=== PATIENT | female | born 1990 | race Caucasian/White ===

== ENCOUNTER 2020-05-29 08:29 | Outpatient (REF) | payer OTHER, SELFPAY ==
--- NOTE | ~2020-05-29 | US_ITS ---
EXAMINATION: US RETROPERITONEAL LIMITED (RENAL ONLY) CLINICAL INFORMATION: Calculus of kidney. COMPARISON: None TECHNIQUE: Real-time imaging of the kidneys. FINDINGS: RIGHT KIDNEY: 10.5 x 4.1 x 5.4 cm (SAG x AP x TRV). The kidney is normal in size, contour, and echogenicity. Renal cortical thickness is normal. No calculi or focal parenchymal lesions. No hydronephrosis. LEFT KIDNEY: 10.4 x 5.0 x 5.4 cm (SAG x AP x TRV). The kidney is normal in size, contour, and echogenicity. Renal cortical thickness is normal. No calculi or focal parenchymal lesions. No hydronephrosis. US/US renal BI IMPRESSION: Unremarkable renal ultrasound.
[2020-05-29 09:37] LABS: MANUAL DIFF FLAG NO
[2020-05-29 09:45] LABS: Basophils Percent Auto 0.4 % (0-2); Eosinophils Absolute Auto 0.1 X10*3/uL (0.0-0.4); Eosinophils Percent Auto 1.8 % (0-4); Hematocrit 38.4 % (37-47); Hemoglobin 12.1 g/dl (12.0-16.0); Imm Gran Abs Auto 0.04 X10*3/uL (0.00-0.03); Imm Gran Pct Auto 0.7 % (0.0-0.4); Lymphocytes Absolute Auto 1.6 X10*3/uL (1.2-4.9); Mean Corpuscular HGB Conc 31.5 g/dl (31.0-35.0); Mean Corpuscular Hemoglobin 26.8 pg (27.0-33.0); Mean Platelet Volume 10.6 fL (9.4-12.3); Monocytes Absolute Auto 0.4 X10*3/uL (0.1-1.2); Monocytes Percent Auto 6.8 % (2-11); Neutrophils Absolute Auto 3.4 X10*3/uL (2.0-8.3); Neutrophils Percent Auto 61.3 % (45-73); Platelet Count 220 X10*3/uL (160-400); Red Blood Count 4.52 X10*6/uL (4.20-5.50); Red Cell Distribution Width 13.3 % (11.0-16.0); White Blood Count 5.6 X10*3/uL (4.8-10.8)
[2020-05-29 10:10] LABS: Alanine Aminotransferase 10 U/L (0-31); Albumin Level 4.4 g/dL (3.5-5.0); Alkaline Phosphatase 80 U/L (39-117); Anion Gap 14 (12-20); Aspartate Amino Transferase 14 U/L (5-31); Bilirubin Total 0.2 mg/dL (0.0-1.0); Blood Urea Nitrogen 7 mg/dL (9-16); Calcium 9.3 mg/dL (8.4-10.2); Carbon Dioxide 26 mmol/L (22-29); Chloride 104 mmol/L (96-108); Cholesterol 211 mg/dL; Estimated Glomerular Filt Rate > 60; Glucose Fasting 83 mg/dL (60-99); HDL Cholesterol 80 mg/dL; LDL Cholesterol Calculated 116 mg/dl; Potassium 4.3 mmol/L (3.3-5.1); Sodium 140 mmol/L (135-145); Total Protein 7.2 g/dL (6.5-8.0); Triglycerides 76 mg/dL
[2020-05-29 10:32] LABS: TSH reflex Free T4 2.76 uIU/mL (0.32-4.0)
[2020-06-03 14:56] LABS: Vitamin D 25-OH, D2 <4 ng/mL; Vitamin D 25-OH, D3 14 ng/mL; Vitamin D 25-OH, Total 14 ng/mL (30-100)
== END 2020-05-29 08:30 | disposition home or self-care (01) ==
LOC: HO.US 08:29
PROVIDERS: Visit Provider Internal Medicine
DX: N20.0 Calculus of kidney (principal); E66.3 Overweight; E55.9 Vitamin D deficiency, unspecified; E78.5 Hyperlipidemia, unspecified; D64.9 Anemia, unspecified
CPT/HCPCS: 36415; 76775; 80053; 80061; 82306; 84443; 85025

== ENCOUNTER 2021-10-07 18:09 | Emergency (ER) | payer OTHER, SELFPAY ==
--- NOTE | ~2021-10-07 | XR_ITS ---
EXAMINATION: XR CHEST CLINICAL INFORMATION: Chest pain COMPARISON: None TECHNIQUE: Frontal view of the chest was obtained. FINDINGS: No significant abnormality is noted involving the heart, lungs, mediastinum, bony thorax or soft tissues. XR/XR chest 1V IMPRESSION: Unremarkable examination.
[2021-10-07 18:27] VITALS: BP 163/88; PULSE 81; RESP 16; TEMP 36.8; O2SAT 99; BMI 27.4
--- NOTE | 2021-10-07 18:29 | ECG_ITS ---
Test Reason : chest tight Blood Pressure : / mmHG Vent. Rate : 070 BPM Atrial Rate : 070 BPM P-R Int : 156 ms QRS Dur : 074 ms QT Int : 358 ms P-R-T Axes : -21 040 029 degrees QTc Int : 386 ms Normal sinus rhythm Septal infarct , age undetermined Abnormal ECG No previous ECGs available Referred By: Generic ED Physician Electronically Signed By:FAMILIA RICH MD
[2021-10-07 18:42] LABS: MANUAL DIFF FLAG NO
[2021-10-07 18:46] LABS: Basophils Percent Auto 0.2 % (0-2); Eosinophils Absolute Auto 0.2 X10*3/uL (0.0-0.4); Hematocrit 35.9 % (37.0-47.0); Hemoglobin 11.6 g/dl (12.0-16.0); Imm Gran Abs Auto 0.02 X10*3/uL (0.00-0.03); Imm Gran Pct Auto 0.3 % (0.0-0.4); Lymphocytes Absolute Auto 1.9 X10*3/uL (1.2-4.9); Lymphocytes Percent Auto 30.5 % (20-40); Mean Corpuscular HGB Conc 32.3 g/dl (31.0-35.0); Mean Corpuscular Hemoglobin 26.9 pg (27.0-33.0); Mean Corpuscular Volume 83.1 fL (80.0-98.0); Mean Platelet Volume 9.5 fL (9.4-12.3); Monocytes Absolute Auto 0.4 X10*3/uL (0.1-1.2); Monocytes Percent Auto 5.6 % (2-11); Neutrophils Absolute Auto 3.8 x10*3/uL (2.0-8.3); Neutrophils Percent Auto 60.4 % (45-73); Platelet Count 256 X10*3/uL (160-400); Red Blood Count 4.32 X10*6/uL (4.20-5.50); Red Cell Distribution Width 14.6 % (11.0-16.0); White Blood Count 6.3 X10*3/uL (4.8-10.8)
[2021-10-07 19:05] LABS: Anion Gap 15 (12-20); Blood Urea Nitrogen 9 mg/dL (9-16); Carbon Dioxide 22 mmol/L (22-29); Chloride 105 mmol/L (96-108); Creatinine Clr Calc Pharmacy 103.7; Estimated Glomerular Filt Rate > 60; Glucose Random 104 mg/dL (60-115); Potassium 3.7 mmol/L (3.3-5.1); Sodium 138 mmol/L (135-145)
[2021-10-07 19:14] LABS: Troponin-I High Sensitivity < 3.5 ng/L (<3.5-17.0)
[2021-10-07 21:31] VITALS: BP 166/99; PULSE 71; RESP 17; O2SAT 100
--- NOTE | 2021-10-07 21:54 | ED_ITS ---
HPI - Chest Pain General Chief Complaint: Chest Pain Stated Complaint: chest pain Time Seen by Provider: 10/07/21 21:54 Source: patient Mode of arrival: ambulatory Limitations: no limitations History of Present Illness HPI narrative: Patient with strong family history of hypertension her sister who is 2 years older to her and parents have hypertension but patient never been diagnosed with hypertension comes here for 3 days of mid chest pain off and on been constant since yesterday feels sharp Related Data Previous Rx's Medication Instructions Recorded ibuprofen 600 mg tablet 600 mg PO Q6H PRN pain #30 tabs 10/07/21 Allergies Allergy/AdvReac Type Severity Reaction Status Date / Time No Known Allergies Allergy Verified 10/07/21 18:27 Review of Systems Review of Systems: Yes all other systems are reviewed and are negative FOR[facility]LY [facility] Past Medical History Medical History Encounter for physical examination Hypovitaminosis D Mild recurrent major depression Overweight Renal calculi Surgical History No pertinent past surgical history Family History Family History Mother Hypertension Father Pure hypercholesterolemia Hypertension Social History Social History Housing: Apartment Alcohol intake: never Patient Tobacco Use Status: Never used Tobacco e-Cigarette/Vaping Use: Never Used Second Hand Smoke Exposure: No Advance Directives: No Advance Directives Information Provided: No service: No Current occupational status: employed Current occupational exposures/hazards: No Physical Exam Vital Signs: Vital Signs: Last Vital Signs Temp 98.3 F 10/07/21 23:08 Pulse 71 10/07/21 23:39 Resp 19 10/07/21 23:39 BP 118/71 10/07/21 23:39 Pulse Ox 97 10/07/21 23:39 O2 Del Method 10/07/21 23:39 BMI result Body Mass Index 27.4 Appearance: Alert. Oriented X3. No acute distress. Eyes: No pallor or icterus ENT: Pharynx normal. Oral Mucosa moist Neck: Normal inspection. Neck supple. CVS: Normal heart rate and rhythm. Pulses normal. Respiratory: No respiratory distress. Equal air entry bilateral, no wheezing/rales/rhonchi tender left 2nd ICS Abdomen: Soft and nontender. Bowel sounds are present, no mass palpable, no CVA tenderness Skin: Skin warm and dry. Normal skin color. Normal skin turgor. Extremities: No lower extremity edema. No calf tenderness Neuro: Oriented X 3. No motor deficit. MDM - Chest Pain MDM Narrative Medical decision making narrative: 2340 Patient with 3 days of chest pain EKG normal 2 sets of troponin negative tender to touch left intercostal space patient has no history of hypertension but noticed to have blood pressure elevated to 166/99 nitropaste was applied blood pressure improved to 118/71 patient still having the pain without much improvement from nitro paste. Will discharge patient home advised to follow with PCP for further diagnosis of hypertension Differential Diagnosis Differential diagnosis: Likely atypical chest pain and costochondritis Medical Records Data Attestation: I reviewed the patient's medical records. Lab Data Attestation: I reviewed the patient's lab results. Result diagrams: 10/07/21 18:38 10/07/21 18:38 Labs: Lab Results 10/07/21 10/07/21 10/07/21 Range/Units 18:38 18:38 18:38 WBC 6.3 (4.8-10.8) X10*3/uL RBC 4.32 (4.20-5.50) X10*6/uL Hgb 11.6 L (12.0-16.0) g/dl Hct 35.9 L (37.0-47.0) % MCV 83.1 (80.0-98.0) fL MCH 26.9 L (27.0-33.0) pg MCHC 32.3 (31.0-35.0) g/dl RDW 14.6 (11.0-16.0) % Plt Count 256 (160-400) X10*3/uL MPV 9.5 (9.4-12.3) fL Immature Gran % (Auto) 0.3 (0.0-0.4) % Neut % (Auto) 60.4 (45-73) % Lymph % (Auto) 30.5 (20-40) % Valencia % (Auto) 5.6 (2-11) % Eos % (Auto) 3.0 (0-4) % Baso % (Auto) 0.2 (0-2) % Lymph # (Auto) 1.9 (1.2-4.9) X10*3/uL Valencia # (Auto) 0.4 (0.1-1.2) X10*3/uL Eos # (Auto) 0.2 (0.0-0.4) X10*3/uL Baso # (Auto) 0.0 (0.0-0.2) X10*3/uL Abs Immat Gran (auto) 0.02 (0.00-0.03) X10*3/uL Absolute Neuts (auto) 3.8 (2.0-8.3) x10*3/uL Absolute Nucleated RBC 0.000 (0.0-0.012) X10*3/uL Nucleated RBC % (auto) 0.0 (0.0-0.2) /100WBC D-Dimer High Sensitivty NG/ML Sodium 138 (135-145) mmol/L Potassium 3.7 (3.3-5.1) mmol/L Chloride 105 (96-108) mmol/L Carbon Dioxide 22 (22-29) mmol/L Anion Gap 15 (12-20) BUN 9 (9-16) mg/dL Creatinine 0.76 (0.5-1.4) mg/dL Estim Creat Clear Calc 103.7 Estimated GFR > 60 Random Glucose 104 (60-115) mg/dL Calcium 9.0 (8.4-10.2) mg/dL Troponin I High Sens < 3.5 (<3.5-17.0) ng/L 10/07/21 10/07/21 Range/Units 23:01 23:01 WBC (4.8-10.8) X10*3/uL RBC (4.20-5.50) X10*6/uL Hgb (12.0-16.0) g/dl Hct (37.0-47.0) % MCV (80.0-98.0) fL MCH (27.0-33.0) pg MCHC (31.0-35.0) g/dl RDW (11.0-16.0) % Plt Count (160-400) X10*3/uL MPV (9.4-12.3) fL Immature Gran % (Auto) (0.0-0.4) % Neut % (Auto) (45-73) % Lymph % (Auto) (20-40) % Valencia % (Auto) (2-11) % Eos % (Auto) (0-4) % Baso % (Auto) (0-2) % Lymph # (Auto) (1.2-4.9) X10*3/uL Valencia # (Auto) (0.1-1.2) X10*3/uL Eos # (Auto) (0.0-0.4) X10*3/uL Baso # (Auto) (0.0-0.2) X10*3/uL Abs Immat Gran (auto) (0.00-0.03) X10*3/uL Absolute Neuts (auto) (2.0-8.3) x10*3/uL Absolute Nucleated RBC (0.0-0.012) X10*3/uL Nucleated RBC % (auto) (0.0-0.2) /100WBC D-Dimer High Sensitivty < 150 NG/ML Sodium (135-145) mmol/L Potassium (3.3-5.1) mmol/L Chloride (96-108) mmol/L Carbon Dioxide (22-29) mmol/L Anion Gap (12-20) BUN (9-16) mg/dL Creatinine (0.5-1.4) mg/dL Estim Creat Clear Calc Estimated GFR Random Glucose (60-115) mg/dL Calcium (8.4-10.2) mg/dL Troponin I High Sens < 3.5 (<3.5-17.0) ng/L Discharge Plan Discharge Clinical Impression: Chest pain, Hypertension Patient Disposition: Home, Self-Care Instructions: Chest Pain (ED), Hypertension (ED) Additional Instructions: Your pain likely musculoskeletal pain Take pain medication as prescribed Your blood pressure was slightly elevated possibly have hypertension check blood pressure daily it should be less than 130/80 follow with PCP Prescriptions: New ibuprofen 600 mg tablet 600 mg PO Q6H PRN (Reason: pain) Qty: 30 0RF
[2021-10-07 23:08] VITALS: BP 125/86; PULSE 72; RESP 16; TEMP 36.8; O2SAT 98
[2021-10-07 23:25] LABS: D Dimer High Sensitivity < 150 NG/ML
[2021-10-07 23:27] LABS: Troponin-I High Sensitivity < 3.5 ng/L (<3.5-17.0)
[2021-10-07 23:39] VITALS: BP 118/71; PULSE 71; RESP 19; O2SAT 97
[2021-10-07] MEDS: Ketorolac Tromethamine 30 MG/ML VIAL IVPUSH (23:55)
== END 2021-10-08 00:08 | disposition home or self-care (01) ==
PROVIDERS: Emergency Provider Internal Medicine; PCP Internal Medicine
DX: R07.9 Chest pain, unspecified (principal); I10 Essential (primary) hypertension
CPT/HCPCS: 36415; 71045; 80048; 84484; 85025; 85379; 93005; 96374; 99284; 99285; J1885

== ENCOUNTER → 2021-12-26 08:23 | Outpatient (REF) | payer OTHER, SELFPAY ==
--- NOTE | 2021-12-26 08:27 | CA_ITS ---
Transthoracic Echocardiogram Patient (Last, First, Middle): Nori Payne, Gender: Female Date of : 1990 Age: 31 Procedure Date: 12/26/2021 Procedure Type: Transthoracic Echocardiogram Location: OP Height: 162.56 cm Weight: 72.58 kg BSA: 1.78 m2 Heart Rate: 70 bpm BP: 150 / 90 mmHg Molder Fitting: Referring MD: Ceasar Araya MD Symptoms: R07.9 - Chest pain, unspecified Study Quality: Fair ECG Rhythm: Sinus Conclusions: - Normal left ventricular size and systolic function. The visually estimated ejection fraction is between 55-60%. - There is mild septal asymmetric hypertrophy. - Normal right ventricular cavity size and systolic function. Findings Left Ventricle Normal left ventricular size and systolic function. The visually estimated ejection fraction is between 55-60%. There is no evidence of regional wall motion abnormalities. Diastolic function is normal for age. There is mild septal asymmetric hypertrophy. Right Ventricle Normal right ventricular cavity size and systolic function. Atria Both atria are normal in size. Aortic Valve Normal aortic valve structure and function. There is no aortic valve stenosis. There is no aortic valve regurgitation. Mitral Valve The mitral valve appears normal. There is no mitral valve regurgitation. There is no mitral valve stenosis. Pulmonic Valve Normal pulmonic valve structure and function. There is trace pulmonic valve regurgitation. Tricuspid Valve Normal tricuspid valve structure and function. There is no tricuspid valve regurgitation. Normal right atrial pressure. There is no evidence of pulmonary hypertension. Great Vessels All visible segments of the aorta are normal in size. The visualized portions of the pulmonary artery and branches are normal. Venous The inferior vena cava is normal in size and collapses greater than 50% with inspiration. Pericardium/Pleural There is no evidence of pericardial effusion. Prior Study Comparison No prior study available for comparison. Measurements 2D Linear Measurements IVSd: 0.95 0.6-0.9/0.6-1.0 cm LVIDd: 4.70 3.9-5.3/4.2-5.9 cm LVIDd Index: 2.64 2.4-3.2/2.2-3.1 cm/m2 LVIDs: 3.10 2.0-3.6 cm LVPWd: 0.78 0.7-1.1 cm Ao Root: 2.80 2.1-3.5 cm LA Diam: 3.40 2.7-3.8/3.0-4.0 cm LAIDs Index: 1.91 1.5-2.3 cm/m2 LV Mass: 167.99 67-162/88-224 g LV Mass Index: 94.38 43-95/49-115 g/m2 LVOT Diam: 2.00 3.0+(-)1.3 cm Mitral Valve MV Pk E: 0.87 MV PK A: 0.70 MV Decel Time: 203.00 E/A: 1.20 E'Lateral: 10.30 E'Medial: 11.40 E/E' Med: 7.60 E/E' Lat: 8.40 PHT: 59.00 MVA PHT: 3.73 Decel Bowie: 4.29 Aortic Valve AoV Pk Jerry: 1.28 AoV Mn Jerry: 0.86 AoV VTI: 0.26 AoV Pk Grad: 7.00 Aov Mn Grad: 4.00 GABRIELLE Cont.VTI: 2.61 LVOT LVOT Pk Jerry: 0.98 LVOT Mn Jerry: 0.65 LVOT VTI: 0.21 LVOT Pk Grad: 4.00 LVOT Mn Grad: 2.00 LVOT Diam: 2.00 LVOT Area: 3.14 Diastolic Function MV Pk E: 0.87 MV Pk A: 0.70 E/A: 1.20 E'Medial: 11.40 E/E' Med: 7.60 E' Laterial: 10.30 E/E' Lat: 8.40 Right Ventricle TAPSE (mm): 24.00 TVS' Jerry: 15.00 Tricuspid Valve TR Pk Jerry: 1.83 TR Pk Grad: 13.00 RA Press: 3.00 RVSP: 16.00 Great Vessels Aorta Ao Root-2D: 2.80 2.0-3.7 cm Ao Asc: 2.90 2.1-3.4 cm Pulmonary Valve PV Pk Jerry: 1.00 Peak PV Grad: 4.00 Updated in Other Vendor System with Status of Final Fernando Elias MD electronically signed on 12/28/2021 3:26:35 PM with status of Final
== END ==
LOC: HO.CARD 08:23
PROVIDERS: Visit Provider Internal Medicine
DX: R07.9 Chest pain, unspecified (principal)
CPT/HCPCS: 93306

== ENCOUNTER 2022-01-19 10:22 | Outpatient (REF) | payer OTHER, SELFPAY ==
--- NOTE | ~2022-01-19 | US_ITS ---
CLINICAL INDICATION: Hypertension. TECHNIQUE: Real-time ultrasound examination of the kidneys and urinary bladder was performed including duplex Doppler evaluation of the renal arteries, bilaterally. FINDINGS: The visualized portion of the abdominal aorta appears unremarkable. Peak systolic velocity in the abdominal aorta measures 73 cm/sec. The right kidney measures 10.5 cm in length, without evidence of stone or hydronephrosis. The echotexture of the right kidney appears unremarkable. No fluid is seen in Morison's pouch. Peak systolic velocity in the main right renal artery measure 199 cm/sec. Waveforms in the main renal artery and intrarenal waveforms appear unremarkable, without evidence of parvus tardus. Flow is seen within the right renal vein. RAR 2.8 The left kidney measures 10.4 cm in length, without evidence of stone or hydronephrosis. The echotexture of the left kidney appears unremarkable. Peak systolic velocity in the main left renal artery measure 155 cm/sec. Waveforms in the main renal artery and intrarenal waveforms appear unremarkable, without evidence of parvus tardus. Flow is seen within the left renal vein. RAR 2.2 There is stenosis on the right no stenosis on the left Segmental RI is normal bilaterally, indicating for patency of segmental adrenal arteries US/US renal BI IMPRESSION: There is renal artery stenosis on the right PSV of 199 in the medial ends 206 distally, RAR 2.8
--- NOTE | ~2022-01-19 | US_ITS ---
CLINICAL INDICATION: Hypertension. TECHNIQUE: Real-time ultrasound examination of the kidneys and urinary bladder was performed including duplex Doppler evaluation of the renal arteries, bilaterally. FINDINGS: The visualized portion of the abdominal aorta appears unremarkable. Peak systolic velocity in the abdominal aorta measures 73 cm/sec. The right kidney measures 10.5 cm in length, without evidence of stone or hydronephrosis. The echotexture of the right kidney appears unremarkable. No fluid is seen in Morison's pouch. Peak systolic velocity in the main right renal artery measure 199 cm/sec. Waveforms in the main renal artery and intrarenal waveforms appear unremarkable, without evidence of parvus tardus. Flow is seen within the right renal vein. RAR 2.8 The left kidney measures 10.4 cm in length, without evidence of stone or hydronephrosis. The echotexture of the left kidney appears unremarkable. Peak systolic velocity in the main left renal artery measure 155 cm/sec. Waveforms in the main renal artery and intrarenal waveforms appear unremarkable, without evidence of parvus tardus. Flow is seen within the left renal vein. RAR 2.2 There is stenosis on the right no stenosis on the left Segmental RI is normal bilaterally, indicating for patency of segmental adrenal arteries US/US renal doppler IMPRESSION: There is renal artery stenosis on the right PSV of 199 in the medial ends 206 distally, RAR 2.8
== END 2022-01-19 10:23 | disposition home or self-care (01) ==
LOC: HO.US 10:22
PROVIDERS: Visit Provider Internal Medicine
DX: R07.9 Chest pain, unspecified (principal); I10 Essential (primary) hypertension
CPT/HCPCS: 76775; 93975

== ENCOUNTER 2022-10-06 11:14 | Outpatient (AMB) | payer OTHER, SELFPAY ==
[2022-10-06 11:16] VITALS: BP 110/72; BMI 28.5
--- NOTE | 2022-10-06 11:16 | MHC.PC.OV ---
Vital Signs 10/06/22 11:16 Height 5 ft 2 in Weight 156 lb BMI 28.5 BP 110/72 Blood Pressure Location Lt brachial Position Sitting Intake Visit Reasons: 4M follow up Intake Note: Patient here for a 4 month follow up Chief Diversity Officer Required: No Accompanied by: Self / Same As Patient Allergies No Known Allergies Allergy (Verified 10/06/22 11:22) Medication List - Last Reconciled 10/06/22 by Camille Irvin MD labetalol 200 mg PO BID Tobacco use date assessed: 06/01/22 Dental Screening Dental Screen Date: 10/06/22 Did you have a dental visit in the last 12 months?: Yes Did you have a dental problem in the last 6 months where you did not have access to dental care?: No Was dental information given to patient?: Patient has dentist HPI HPI Comments History of Present Illness Details This is a 31-year-old female with hypertension that comes today for follow-up on her blood pressure which has been stable with labetalol. 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 She also follows with cardiology. No chest pain or shortness of breath. [facility] Medical History (Updated 10/06/22 @ 11:29 by Camille Irvin MD) Encounter for physical examination Hypovitaminosis D Mild recurrent major depression Overweight Renal calculi Surgical History No pertinent past surgical history Family History Mother Hypertension Father Pure hypercholesterolemia Hypertension Social History Housing: Apartment Alcohol intake: never Patient Tobacco Use Status: Never used Tobacco e-Cigarette/Vaping Use: Never Used Second Hand Smoke Exposure: No service: No Current occupational status: employed Current occupational exposures/hazards: No Cognitive needs: No Hearing needs: No Vision needs: No Questionnaire Thrive Questionnaire Date Thrive assessed: 06/01/22 EMILY-7 AMB Questionnaire EMILY-7 Date EMILY - 7 assessed: 06/01/22 Source: Developed by Drs. Jonny Moyer, Flora Lynch, Nagi Lopez and colleagues, with an educational rao from [employer]. Review of Systems Const All systems reviewed & are unremarkable except as noted in HPI and below Eyes Reports no additional complaints, Denies change in vision and Denies other visual disturbances Card Denies chest pain at rest, Denies chest pain with activity, Denies edema, Denies irregular heart rhythm, Denies claudication, Denies dyspnea, Denies dyspnea on exertion, Denies orthopnea, Denies paroxysmal nocturnal dyspnea and Denies slow heart rate Resp Denies cough, Denies dyspnea and Denies dyspnea on exertion GI Denies abdominal pain, Denies change in bowel habits, Denies excessive flatus, Denies nausea and Denies vomiting Denies urinary incontinence, Denies urinary hesitancy and Denies urinary urgency Musc Denies abnormal gait, Denies atrophy, Denies deformity and Denies limited range of motion Skin/Breast Denies bleeding lesions, Denies changing lesions and Denies rash Neuro Denies abnormal gait and Denies lack of coordination Physical exam (Primary Care) Vital Signs: Last Vital Signs BP 110/72 10/06/22 11:16 BMI result Body Mass Index 28.5 Tobacco/Smoking Status: Tobacco use Status Tobacco use date assessed 06/01/22 10/06/22 11:18 Patient Tobacco Use Status Never used Tobacco 10/06/22 11:18 e-Cigarette/Vaping Use Never Used 10/06/22 11:18 Thrive Assessment: Date of Thrive Assessment Date Thrive assessed 06/01/22 10/06/22 11:18 Eyes General: appearance normal, both eyes and all related structures Eyelids: Yes eyelids normal Conjunctivae: conjunctivae normal Neck Neck: Yes normal visual inspection and Yes supple Resp Effort & Inspection: normal respiratory effort Auscultation: clear to auscultation bilaterally Cardio Jugular venous distension: no JVD Rate: regular rate Rhythm: regular rhythm Heart sounds: S1 normal heart sound present and S2 normal heart sound present Extrem General: Yes full ROM Assessment and Plan Assessment & Plan (1) Essential hypertension: Code(s): I10 - Essential (primary) hypertension Plan: Continue labetalol. Blood pressure goal is equal or less than 130/80. Orders: Orders OT Evaluation and Treatment Today M25.532 - Pain in left wrist XR hand wrist LT Today M25.532 - Pain in left wrist Coding Level of Care Code Est Pt Level 3 (45902) Diagnoses Essential hypertension I10 Time Spent (min) 18
== END 2022-10-06 11:35 | disposition home or self-care (01) ==
PROVIDERS: Visit Provider Internal Medicine
DX: I10 Essential (primary) hypertension (principal)
CPT/HCPCS: 99213

== ENCOUNTER 2022-10-08 08:19 | Outpatient (AMB) | payer OTHER, SELFPAY ==
--- NOTE | 2022-10-08 08:23 | MHC.OFFVIS ---
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 She was 11 weeks at her last visit in January. Today she states that the remaining of her went without concerning symptoms or complications. She reports having heavy bleeding during delivery requiring 2 blood transfusions. She has been doing well since that time. Her baby is now 2-month-old. She denies any chest discomfort at rest or with activity. No heart palpitations, shortness of breath, PND, orthopnea or edema. No presyncope, syncope. She continues on labetalol for blood pressure control. She will be undergoing a tubal ligation in the near future and is requesting cardiac clearance ON LICENSE OF [facility] Medical History Encounter for physical examination Hypovitaminosis D Mild recurrent major depression Overweight Renal calculi Surgical History No pertinent past surgical history Family History Mother Hypertension Father Pure hypercholesterolemia Hypertension Social History Housing: Apartment Alcohol intake: never Patient Tobacco Use Status: Never used Tobacco e-Cigarette/Vaping Use: Never Used Second Hand Smoke Exposure: No service: No Current occupational status: employed Current occupational exposures/hazards: No Cognitive needs: No Hearing needs: No Vision needs: No Review of Systems Const All systems reviewed & are unremarkable except as noted in HPI and below ENT Reports dizziness Card Denies chest pain, Denies chest pain at rest, Denies chest pain with activity, Denies rapid heart rate, Denies pedal edema, Denies edema, Denies leg edema, Denies lightheadedness, Denies palpitations, Denies dyspnea, Denies dyspnea on exertion and Denies orthopnea Resp Denies cough, Denies dyspnea and Denies dyspnea on exertion GI Denies hematochezia and Denies change in stool character Musc Denies abnormal gait, Reports limited range of motion, Reports muscle cramps, Denies muscle weakness, Denies numbness, Denies radiating pain into limb, Denies stiffness and Denies tingling Neuro Denies abnormal gait, Reports dizziness, Denies numbness and Denies tingling Endo Denies palpitations Physical Exam Const General: cooperative, healthy appearing, comfortable and no acute distress Orientation/consciousness: patient oriented x3 Neck Neck: Yes normal visual inspection Resp Effort & Inspection: normal respiratory effort Auscultation: clear to auscultation bilaterally, no crackles, no rales, no rhonchi and no wheezes Cardio Jugular venous distension: no JVD Rate: regular rate Rhythm: regular rhythm Heart sounds: S1 normal heart sound present, S2 normal heart sound present, no murmurs and no rubs Neuro General: patient oriented x3 Extrem General: Yes normal to inspection Psych Appearance: grossly normal Mental Status: mental status grossly normal Speech and movement: Normal speech and movement present Office Procedures EKG Details: Today read by me, sinus rhythm with PVC, septal Q-wave which is unchanged from prior EKG, rate 62, QTC 401 millisecond [id number], Complete Assessment & Plan Assessment & Plan (1) Chest pain: Code(s): R07.9 - Chest pain, unspecified Plan: Prior reports of chest discomfort. Symptoms were felt to be atypical. She underwent an echocardiogram on 12/26/2021 showing EF 55-60%, mild septal asymmetric hypertrophy, normal valves. On follow-up visit she had reported her discomfort was resolved. She completed a and delivery this past year without any cardiac complications. She has a history of hypertension and blood pressure has been well controlled with labetalol. EKG today shows sinus rhythm with no acute ST or T-wave abnormalities, septal Q present which could be related to lead placement, septal hypertrophy. EKG is unchanged in the last year. Informed that septal hypertrophy did not contribute to chest discomfort. Her repeat echocardiogram is planned 1 year from last just for re-evaluation and comparison, due January 2023. Plan to call her with results. Cardiology follow-up 1 year. Reviewed the importance of good blood pressure control. (2) Asymmetric septal hypertrophy: Code(s): I42.2 - Other hypertrophic cardiomyopathy (3) Essential hypertension: Code(s): I10 - Essential (primary) hypertension Plan: Well controlled (4) Preop cardiovascular exam: Code(s): Z01.810 - Encounter for preprocedural cardiovascular examination Plan: Preop for tubal ligation. Low cardiac risk to proceed. Coding Level of Care Code Est Pt Level 3 (61680) Diagnoses Chest pain R07.9 Asymmetric septal hypertrophy I42.2 Essential hypertension I10 Preop cardiovascular exam Z01.810 CPT Codes EKG - CPT: 67869-[id number], Complete ([id number]) Time Spent (min) 22 Comment chart review, document, interview, assess
[2022-10-08 08:24] VITALS: BP 120/70; PULSE 62; BMI 28.2
== END 2022-10-08 08:48 | disposition home or self-care (01) ==
PROVIDERS: PCP Internal Medicine; Referring Provider Internal Medicine; Visit Provider Nurse Practitioner Family
DX: R07.9 Chest pain, unspecified (principal); I42.2 Other hypertrophic cardiomyopathy; I10 Essential (primary) hypertension; Z01.810 Encounter for preprocedural cardiovascular examination
CPT/HCPCS: 93010; 99213

== ENCOUNTER → 2022-10-08 08:19 | Outpatient (BNVA) | payer OTHER, SELFPAY | PROVIDERS: PCP Internal Medicine; Referring Provider Internal Medicine; Visit Provider Nurse Practitioner Family | DX: Z01.810 Encounter for preprocedural cardiovascular examination (principal); I49.3 Ventricular premature depolarization; I42.2 Other hypertrophic cardiomyopathy; I10 Essential (primary) hypertension; R07.89 Other chest pain | CPT/HCPCS: 93005 ==

== ENCOUNTER 2022-11-04 14:00 | Outpatient (RCR) | payer OTHER, MEDICAID, SELFPAY ==
--- NOTE | 2022-11-04 15:34 | MHC.OT.DC ---
[address] [phone] F: [phone] Occupational Therapy Discharge Note Patient Name: Nori Muñoz Provider: Camille Irvin Diagnosis: Left wrist pain Date of Surgery: Date of Evaluation: 10/14/22 Date of Discharge: 11/04/22 Treatments to Date: 6 Cancellations to Date: No Shows to Date: Discharge Status: Independent with HEP Discharge Summary: Pt reports improving pain with protected use. Pain 0-8. Pain 3/10 with light activity . Pain increases to 8/10 wrist repeated wrist motions, turning doorknobs, buttons, pushing up from a chair Pt to return to work next Wednesday and anticipates difficulty due to increased pain with writing. Essential work tasks are writing, typing , filing.. Wrist ROM and subsurface augmentee operator strength are WFL Continued radial wrist with mild edema.. pain with palpation and a positive Finkelsteins test noted. S+S consistent with a diagnosis of Dequervains tenosynovitis. Pt has a forearm based thumb spica splint and is indep with her HEP and wrist protection techniques. Recommend referral to Orthopedics for consideration of further medical management with wrist injection. Electronically Signed By: Kamini Bello OT CHT CLT Reviewed/agree with student documentation: Therapist: Please Sign and return to therapist, thank you for your referral.
== END 2022-11-04 15:36 | disposition home or self-care (01) ==
LOC: HO.OT 14:00
PROVIDERS: PCP Internal Medicine; Visit Provider Internal Medicine
DX: M25.532 Pain in left wrist (principal)
CPT/HCPCS: 29125; 97033; 97110; 97167; 97760

== ENCOUNTER → 2023-01-22 13:54 | Outpatient (REF) | payer OTHER, MEDICAID, SELFPAY ==
--- NOTE | 2023-01-22 13:57 | CA_ITS ---
Transthoracic Echocardiogram Patient (Last, First, Middle): Nori Payne, Gender: Female Date of : 1990 Age: 32 Procedure Date: 01/22/2023 Procedure Type: Transthoracic Echocardiogram Location: OP Height: 162.56 cm Weight: 72.58 kg BSA: 1.78 m2 Heart Rate: 73 bpm BP: 120 / 75 mmHg Hydrotel Operator: DONALD Referring MD: Kim Vences INSURANCE BUSINESS ANALYSTAtilio Symptoms: I42.2 - Other hypertrophic cardiomyopathy Study Quality: Adequate ECG Rhythm: Sinus Conclusions: - The left ventricular systolic function is normal. The calculated ejection fraction is 65% by biplane method. - There is normal left ventricular wall thickness. - No obvious valvular pathology seen on this study. Findings Left Ventricle Normal left ventricular cavity size. There is normal left ventricular wall thickness. The left ventricular systolic function is normal. The calculated ejection fraction is 65% by biplane method. There is no evidence of regional wall motion abnormalities. Diastolic function is normal for age. LV peak GLS -24.2%. Right Ventricle Normal right ventricular cavity size and systolic function. Atria Both atria are normal in size. Aortic Valve There is a normal trileaflet aortic valve. There is no aortic valve stenosis. There is no aortic valve regurgitation. Mitral Valve The mitral valve appears normal. There is no mitral valve regurgitation. There is no mitral valve stenosis. Pulmonic Valve The pulmonic valve is likely normal. Tricuspid Valve Normal tricuspid valve structure. There is no tricuspid valve regurgitation. There is no evidence of pulmonary hypertension. Great Vessels The asc aorta is normal in size. Venous The inferior vena cava is normal in size and collapses greater than 50% with inspiration. Pericardium/Pleural There is a trivial pericardial effusion. Prior Study Comparison No significant change compared to prior study dated: 12/26/2021. On review of prior images, no clear septal hypertrophy noted. Recommendations, Care & Conclusions No obvious valvular pathology seen on this study. Measurements 2D Linear Measurements IVSd: 0.79 0.6-0.9/0.6-1.0 cm LVIDd: 4.66 3.9-5.3/4.2-5.9 cm LVIDd Index: 2.62 2.4-3.2/2.2-3.1 cm/m2 LVIDs: 3.04 2.0-3.6 cm LVPWd: 0.98 0.7-1.1 cm LA Diam: 3.50 2.7-3.8/3.0-4.0 cm LAIDs Index: 1.97 1.5-2.3 cm/m2 LV Mass: 171.76 67-162/88-224 g LV Mass Index: 96.49 43-95/49-115 g/m2 LVOT Diam: 1.90 3.0+(-)1.3 cm 2D Systolic Function EF 4C: 61.30 >55% EF 2C: 67.60 >55% EF BiP: 64.70 >55% Mitral Valve MV Pk E: 0.94 MV PK A: 0.89 MV Decel Time: 211.00 E/A: 1.10 E'Lateral: 9.36 E'Medial: 10.60 E/E' Med: 8.80 E/E' Lat: 10.00 PHT: 62.00 MVA PHT: 3.55 Decel [place]: 4.43 Aortic Valve AoV Pk Jerry: 1.38 AoV Mn Jerry: 0.91 AoV VTI: 0.28 AoV Pk Grad: 8.00 Aov Mn Grad: 4.00 GABRIELLE Cont.VTI: 2.62 LVOT LVOT Pk Jerry: 1.22 LVOT Mn Jerry: 0.88 LVOT VTI: 0.26 LVOT Pk Grad: 6.00 LVOT Mn Grad: 3.00 LVOT Diam: 1.90 LVOT Area: 2.84 Diastolic Function MV Pk E: 0.94 MV Pk A: 0.89 E/A: 1.10 E'Medial: 10.60 E/E' Med: 8.80 E' Laterial: 9.36 E/E' Lat: 10.00 Right Ventricle TAPSE (mm): 23.60 TVS' Jerry: 13.90 Tricuspid Valve TR Pk Jerry: 1.47 TR Pk Grad: 9.00 RA Press: 3.00 RVSP: 12.00 Great Vessels Aorta Sinus of Valsalva: 3.40 2.0-3.5 cm Ao Asc: 3.60 2.1-3.4 cm Pulmonary Valve PV Pk Jerry: 0.81 Peak PV Grad: 3.00 Updated in Other Vendor System with Status of Final Ceasar Araya MD electronically signed on 01/23/2023 2:19:48 PM with status of Final
== END ==
LOC: HO.CARD 13:54
PROVIDERS: PCP Internal Medicine; Visit Provider Nurse Practitioner Family
DX: I42.2 Other hypertrophic cardiomyopathy (principal)
CPT/HCPCS: 93306; 93356

== ENCOUNTER → 2023-01-22 13:57 | Outpatient (BNV) | payer OTHER, MEDICAID, SELFPAY | PROVIDERS: PCP Internal Medicine; Visit Provider Internal Medicine | DX: I42.2 Other hypertrophic cardiomyopathy (principal) | CPT/HCPCS: 93306 ==

== ENCOUNTER 2023-06-08 09:09 | Outpatient (AMB) | payer OTHER, SELFPAY ==
--- NOTE | 2023-06-08 09:16 | MHC.PC.OV ---
Vital Signs 06/08/23 09:17 Height 5 ft 2 in Weight 168 lb BMI 30.7 BP 126/80 Blood Pressure Location Lt brachial Position Sitting Intake Visit Reasons: PE Intake Note: Patient here for a physical exam Turn Out Worker Required: No Accompanied by: Self / Same As Patient Allergies No Known Allergies Allergy (Verified 06/08/23 09:53) Medication List - Last Reconciled 06/08/23 by Camille Irvin MD labetalol 200 mg PO BID Tobacco use date assessed: 06/08/23 Dental Screening Dental Screen Date: 06/08/23 Did you have a dental visit in the last 12 months?: Yes Did you have a dental problem in the last 6 months where you did not have access to dental care?: No Was dental information given to patient?: Patient has dentist HPI HPI Comments History of Present Illness Details This is a 32-year-old female with mild recurrent major depression and asymmetric septal hypertrophy that comes for her physical exam. She has counseling from work but still has depression and is interested in having medication. Will start her on bupropion and she is aware it is going to start working 2 weeks after taking it every day. Asymmetric septal hypertrophy is follow by cardiology and has been stable. Last Pap smear was March 2023 which was abnormal and then had a biopsy which was normal. Denies any chest pain or shortness of breath. Follows with Nephrology once a year due to renal artery stenosis. FOR[facility]LY [facility], [facility] Medical History (Updated 06/08/23 @ 10:31 by Camille Irvin MD) Mild recurrent major depression Hypovitaminosis D Encounter for physical examination Renal calculi Overweight Surgical History History of tubal ligation Family History Mother Hypertension Father Pure hypercholesterolemia Hypertension Social History Housing: Apartment Alcohol intake: never Patient Tobacco Use Status: Never used Tobacco e-Cigarette/Vaping Use: Never Used Second Hand Smoke Exposure: No service: No Current occupational status: employed Current occupational exposures/hazards: No Cognitive needs: No Hearing needs: No Vision needs: No Questionnaire PHQ-9 Over the last 2 weeks, how often have you been bothered by any of the following problems? 1. Little interest or pleasure in doing things: not at all 2. Feeling down, depressed, or hopeless: several days 3. Trouble falling or staying asleep, or sleeping too much: not at all 4. Feeling tired or having little energy: several days 5. Poor appetite or overeating: several days 6. Feeling bad about yourself - or that you are a failure or have let yourself or your family down: not at all 7. Trouble concentrating on things, such as reading the newspaper or watching television: several days 8. Moving or speaking so slowly that other people could have noticed. Or the opposite - being so fidgety or restless that you have been moving around a lot more than usual: several days 9. Thoughts that you would be better off or of hurting yourself in some way: not at all Total score: 5 Depression Screening Interpretation: Positive Depression Screening Follow-up: Existing condition, New Medication prescribed and Community Mental Health Worker F/U Depression Screening Done: Yes 69460 - PHQ-9 Billing: Yes Source: Developed by Drs. Jonny Moyer, Flora Lynch, Nagi Lopez and colleagues, with an educational rao from [employer]. Thrive Questionnaire Date Thrive assessed: 06/08/23 I am a: Patient What is your living situation today?: I have a steady place to live Within the past 12 months, did the food you bought not last and you didn't have the money to get more?: Never true Within the past 12 months, did you worry whether your food would run out before you got money to buy more?: Never true Do you have trouble paying for medicines?: No Do you have trouble getting transportation to medical appointments?: No Do you have trouble paying your heating and electricity bill?: No Do you have trouble taking care of your child, family member or friend?: No Do you have trouble with day-to-day activities such as bathing, preparing meals, shopping, managing finances, etc.?: No Are you currently unemployed and looking for a job?: No Are you interested in more education?: No Please select the resources that you would like help with: None Currently or been in a relationship where the following occur: no concerns reported THRIVE Score: 0 AUDIT C Alcohol Use Questionnaire (AUDIT-C) 1. How often do you have a drink containing alcohol?: Never Total Score: 0 Score Reviewed/Action Taken: No EMILY-7 AMB Questionnaire EMILY-7 Date EMILY - 7 assessed: 06/08/23 Feeling nervous, anxious, or on edge: 3 = Nearly every day Not being able to stop or control worryin = Not at all Worrying too much about different things: 2 = More than half the days Trouble relaxin = Several days Being so restless that it is hard to sit still: 0 = Not at all Becoming easily annoyed or irritable: 1 = Several days Feeling afraid as if something awful might happen: 1 = Several days Total EMILY-7 score (0-4 normal; 5-9 mild; 10-14 moderate; 15-21 severe): 8 Source: Developed by Drs. Jonny Moyer, Flora Lynch, Nagi Lopez and colleagues, with an educational rao from [employer]. EMILY-7 Assessment Billing EMILY-7 Assessment Tool: EMILY-7 Assessment 77922 Review of Systems Const All systems reviewed & are unremarkable except as noted in HPI and below Eyes Reports no additional complaints, Denies change in vision and Denies other visual disturbances Card Denies chest pain at rest, Denies chest pain with activity, Denies edema, Denies irregular heart rhythm, Denies claudication, Denies dyspnea, Denies dyspnea on exertion, Denies orthopnea, Denies paroxysmal nocturnal dyspnea and Denies slow heart rate Resp Denies cough, Denies dyspnea and Denies dyspnea on exertion GI Denies abdominal pain, Denies change in bowel habits, Denies excessive flatus, Denies nausea and Denies vomiting Denies urinary incontinence, Denies urinary hesitancy and Denies urinary urgency Physical exam (Primary Care) Vital Signs: Last Vital Signs BP 126/80 06/08/23 09:17 BMI result Body Mass Index 30.7 Tobacco/Smoking Status: Tobacco use Status Tobacco use date assessed 06/08/23 06/08/23 09:22 Patient Tobacco Use Status Never used Tobacco 06/08/23 09:22 e-Cigarette/Vaping Use Never Used 06/08/23 09:22 PHQ-9: PHQ-9 Score PHQ-9: Total score 5 06/08/23 09:59 Depression Screening Interpretation: Positive Depression Screening Follow-up: Existing condition, New Medication prescribed and Community Mental Health Worker F/U Thrive Assessment: Date of Thrive Assessment Date Thrive assessed 06/08/23 06/08/23 09:22 Currently or been in a relationship where the following occur: no concerns reported Const Orientation/consciousness: patient oriented x3 HENMT Head: Yes normal to inspection, Yes normocephalic and Yes atraumatic Ears: external ears normal Eyes General: appearance normal, both eyes and all related structures Eyelids: Yes eyelids normal Conjunctivae: conjunctivae normal Neck Neck: Yes normal visual inspection and Yes supple Resp Effort & Inspection: normal respiratory effort Auscultation: clear to auscultation bilaterally Cardio Jugular venous distension: no JVD Rate: regular rate Rhythm: regular rhythm Heart sounds: S1 normal heart sound present and S2 normal heart sound present GI Inspection: Yes normal to inspection Palpation (GI): Soft to palpation and nontender Auscultation: normal bowel sounds Skin General skin exam: no rashes or lesions noted Neuro General: patient oriented x3 and no focal motor deficits Extrem General: Yes full ROM Psych Appearance: grossly normal Assessment and Plan Assessment & Plan (1) Encounter for physical examination: Code(s): Z00.00 - Encounter for general adult medical examination without abnormal findings Plan: Repeat in a year. (2) Mild recurrent major depression: Code(s): F33.0 - Major depressive disorder, recurrent, mild Plan: Start bupropion. Continue counseling. (3) Asymmetric septal hypertrophy: Code(s): I42.2 - Other hypertrophic cardiomyopathy Plan: Follow-up with Cardiology. (4) Renal artery stenosis: Code(s): I70.1 - Atherosclerosis of renal artery Plan: Follow-up with nephrology. Orders: Orders Complete Blood Count Auto Diff Today D64.9 - Anemia, unspecified IRON PROFILE Today D64.9 - Anemia, unspecified Vitamin D 25-OH Total Today E55.9 - Vitamin D deficiency, unspecified Comprehensive [place]. Panel Fast Today Z00.00 - Encounter for general adult medical examination without abnormal findings Lipid Panel Today Z00.00 - Encounter for general adult medical examination without abnormal findings Medications: New bupropion HCl 150 mg PO QAM 90 days 90 tabs 1RF F33.0 - Major depressive disorder, recurrent, mild Coding Level of Care Code Est Pt Prev Care [id number]) Diagnoses Encounter for physical examination Z00.00 Mild recurrent major depression F33.0 Asymmetric septal hypertrophy I42.2 Renal artery stenosis I70.1 Additional Codes EMILY-7 Assessment Billing - EMILY-7 Assessment Tool: EMILY-7 Assessment [id number] ([id number]) Time Spent (min) 34
[2023-06-08 09:17] VITALS: BP 126/80; BMI 30.7
== END 2023-06-08 10:05 | disposition home or self-care (01) ==
PROVIDERS: Visit Provider Internal Medicine
DX: Z00.00 Encounter for general adult medical examination without abnormal findings (principal); F33.0 Major depressive disorder, recurrent, mild; I42.2 Other hypertrophic cardiomyopathy; I70.1 Atherosclerosis of renal artery
CPT/HCPCS: 99395

== ENCOUNTER 2024-06-12 09:14 | Outpatient (AMB) | payer OTHER, SELFPAY ==
--- NOTE | 2024-06-12 09:20 | A.OFFPC_ITS ---
Vital Signs 06/12/24 09:21 Height 5 ft 2 in Weight 172 lb BMI 31.5 BP 112/82 Blood Pressure Location Lt brachial Position Sitting Intake Visit Reasons: Annual Exam Intake Note: Patient here for an annual physical exam Plate Inspector Required: No Accompanied by: Self / Same As Patient Allergies No Known Allergies Allergy (Verified 06/12/24 09:35) Medication List - Last Reconciled 06/12/24 by Camille Irvin MD bupropion HCl XL 150 mg PO QAM 90 days labetalol 200 mg PO BID Tobacco use date assessed: 06/12/24 Dental Screening Dental Screen Date: 06/12/24 Did you have a dental visit in the last 12 months?: Yes Did you have a dental problem in the last 6 months where you did not have access to dental care?: No Was dental information given to patient?: Patient has dentist HPI HPI Comments History of Present Illness Details The patient is a 33-year-old female presenting with an annual physical examination. Her medical history includes successful management of anxiety and depression using bupropion and well-controlled essential hypertension with labetalol. She also has asymmetric septal hypertrophy follow by cardiology. There is a family history of hypertension. She notes a past episode of iron- deficiency anemia that affected her ability to donate plasma, which was alleviated with iron supplements. Additionally, she was treated for vitamin D deficiency previously. She reports ongoing struggles with weight management despite no perceived excessive caloric intake, suspecting irregular dietary habits may be a contributing factor. Past medical evaluations for renal artery stenosis indicated normal findings with no evidence of significant obstruction. A Pap smear conducted post- in 2022 showed normal results after an initial abnormality, though precise details remain to be clarified. - Tetanus vaccine administered in 2022; next dose due in 2032. - Last Pap smear in 2022 with initially abnormal but subsequently normal results. - Past diagnosis of iron-deficiency anem ia; patient encouraged to adhere to iron supplementation. - Previous diagnosis and management of v itamin D deficiency. - Routine monitoring and management of e ssential hypertension with labetalol. - Well-controlled anxiety and depression with bupropion. - Renal artery Doppler indicated no sign ificant stenosis; blood pressure management continues successfully. [facility] Medical History (Updated 06/12/24 @ 11:51 by Camille Irvin MD) Renal artery stenosis Mild recurrent major depression Hypovitaminosis D Encounter for physical examination Renal calculi Overweight Surgical History History of tubal ligation Family History Mother Hypertension Father Pure hypercholesterolemia Hypertension Social History (Updated 06/12/24 @ 09:39 by Camille Irvin MD) Housing: Apartment Alcohol intake: current Alcohol intake frequency: holidays/special occasions only Alcohol type: wine Patient Tobacco Use Status: Never used Tobacco e-Cigarette/Vaping Use: Never Used Second Hand Smoke Exposure: No service: No Current occupational status: employed Current occupational exposures/hazards: No Cognitive needs: No Hearing needs: No Vision needs: No Questionnaire PHQ-9 Over the last 2 weeks, how often have you been bothered by any of the following problems? 1. Little interest or pleasure in doing things: not at all 2. Feeling down, depressed, or hopeless: not at all 3. Trouble falling or staying asleep, or sleeping too much: not at all 4. Feeling tired or having little energy: several days 5. Poor appetite or overeating: not at all 6. Feeling bad about yourself - or that you are a failure or have let yourself or your family down: not at all 7. Trouble concentrating on things, such as reading the newspaper or watching television: not at all 8. Moving or speaking so slowly that other people could have noticed. Or the opposite - being so fidgety or restless that you have been moving around a lot more than usual: not at all 9. Thoughts that you would be better off or of hurting yourself in some way: not at all Total score: 1 Depression Screening Interpretation: Positive Depression Screening Follow-up: Existing condition, In treatment and Follow-up Visit Requested Depression Screening Done: Yes 56171 - PHQ-9 Billing: Yes Source: Developed by Drs. Jonny Moyer, Flora Lynch, Nagi Lopez and colleagues, with an educational rao from [employer]. Thrive Questionnaire Date Thrive assessed: 06/12/24 I am a: Patient What is your living situation today?: I have a steady place to live Within the past 12 months, did the food you bought not last and you didn't have the money to get more?: Never true Within the past 12 months, did you worry whether your food would run out before you got money to buy more?: Never true Do you have trouble paying for medicines?: No Do you have trouble getting transportation to medical appointments?: No Do you have trouble paying your heating and electricity bill?: No Do you have trouble taking care of your child, family member or friend?: No Do you have trouble with day-to-day activities such as bathing, preparing meals, shopping, managing finances, etc.?: No Are you currently unemployed and looking for a job?: No Are you interested in more education?: No Please select the resources that you would like help with: None Currently or been in a relationship where the following occur: No concerns reported THRIVE Score: 0 AUDIT C Alcohol Use Questionnaire (AUDIT-C) 1. How often do you have a drink containing alcohol?: Monthly or less 2. How many drinks containing alcohol do you have on a typical day when you are drinking?: 1 or 2 3. How often do you have six or more drinks on one occasion?: Never Total Score: 1 Score Reviewed/Action Taken: No EMILY-7 AMB Questionnaire EMILY-7 Date EMILY - 7 assessed: 06/12/24 Feeling nervous, anxious, or on edge: 1 = Several days Not being able to stop or control worryin = Several days Worrying too much about different things: 0 = Not at all Trouble relaxin = Not at all Being so restless that it is hard to sit still: 0 = Not at all Becoming easily annoyed or irritable: 0 = Not at all Feeling afraid as if something awful might happen: 1 = Several days Total EMILY-7 score (0-4 normal; 5-9 mild; 10-14 moderate; 15-21 severe): 3 Source: Developed by Drs. Jonny Moyer, Flora Lynch, Nagi Lopez and colleagues, with an educational rao from [employer]. EMILY-7 Assessment Billing EMILY-7 Assessment Tool: EMILY-7 Assessment 46630 Review of Systems Const All systems reviewed & are unremarkable except as noted in HPI and below Card Denies chest pain at rest, Denies chest pain with activity, Denies edema, Denies irregular heart rhythm, Denies claudication, Denies dyspnea, Denies dyspnea on exertion, Denies orthopnea, Denies paroxysmal nocturnal dyspnea and Denies slow heart rate Resp Denies cough, Denies dyspnea and Denies dyspnea on exertion GI Denies abdominal pain, Denies change in bowel habits, Denies excessive flatus, Denies nausea and Denies vomiting Denies urinary incontinence, Denies urinary hesitancy and Denies urinary urgency Musc Denies abnormal gait, Denies atrophy, Denies deformity and Denies limited range of motion Skin/Breast Denies bleeding lesions, Denies changing lesions and Denies rash Neuro Denies abnormal gait, Denies behavioral changes and Denies lack of coordination Psych Denies behavioral changes Physical exam (Primary Care) Vital Signs: Last Vital Signs BP 112/82 06/12/24 09:21 BMI result Body Mass Index 31.5 BMI Assessment/Plan discussion: High BMI High, discussed plan: lifestyle, weight reduction, dietary and physical activity Tobacco/Smoking Status: Tobacco use Status Tobacco use date assessed 06/12/24 06/12/24 09:27 Patient Tobacco Use Status Never used Tobacco 06/12/24 09:39 e-Cigarette/Vaping Use Never Used 06/12/24 09:39 PHQ-9: PHQ-9 Score PHQ-9: Total score 1 06/12/24 09:36 Depression Screening Interpretation: Positive Depression Screening Follow-up: Existing condition, In treatment and Follow-up Visit Requested Thrive Assessment: Date of Thrive Assessment Date Thrive assessed 06/12/24 06/12/24 09:27 Currently or been in a relationship where the following occur: No concerns reported [facility] Head: Yes normal to inspection, Yes normocephalic and Yes atraumatic Ears: external ears normal Eyes General: appearance normal, both eyes and all related structures Eyelids: Yes eyelids normal Conjunctivae: conjunctivae normal Neck Neck: Yes normal visual inspection and Yes supple Resp Effort & Inspection: normal respiratory effort Auscultation: clear to auscultation bilaterally Cardio Jugular venous distension: no JVD Rate: regular rate Rhythm: regular rhythm Heart sounds: S1 normal heart sound present and S2 normal heart sound present GI Inspection: Yes normal to inspection Palpation (GI): Soft to palpation and nontender Auscultation: normal bowel sounds Skin General skin exam: no rashes or lesions noted Neuro General: no focal motor deficits Extrem General: Yes full ROM Psych Appearance: grossly normal Coding Level of Care Code Est Pt Level 3 (62381) Est Pt Prev Care 18-39y(47250) Diagnoses Encounter for physical examination Z00.00 Mild recurrent major depression F33.0 Asymmetric septal hypertrophy I42.2 Class 1 obesity with body mass index (BMI) of 31.0 to 31.9 in adult E66.811; Z68.31 Additional Codes EMILY-7 Assessment Billing - EMILY-7 Assessment Tool: EMILY-7 Assessment 47979 ([id number]) PHQ-9 - 58592 - PHQ-9 Billing: Yes ([id number]) Time Spent (min) 33 Assessment & Plan Assessment & Plan (1) Encounter for physical examination: Code(s): Z00.00 - Encounter for general adult medical examination without abnormal findings Category: Medical (2) Mild recurrent major depression: Code(s): F33.0 - Major depressive disorder, recurrent, mild Category: Medical (3) Asymmetric septal hypertrophy: Code(s): I42.2 - Other hypertrophic cardiomyopathy Category: Medical (4) Class 1 obesity with body mass index (BMI) of 31.0 to 31.9 in adult: Code(s): E66.811 - Obesity, class 1; Z68.31 - Body mass index [BMI] 31.0-31.9, adult Category: Medical Plan Management of the patient?s well-controlled anxiety and depression with bupropion will continue. Essential hypertension treatment with labetalol remains effective and is to be maintained. Recommendations include adherence to previous iron supplementation due to inconsistent past intake. Evaluation of current vitamin D status is suggested given the history of deficiency. Adjustments in dietary patterns and lifestyle modifications were discussed for weight management, while consistent pressure control indicates no immediate need for renal Doppler follow-up. Scheduled Pap smear reporting will be revisited to confirm historical accuracy of normalcy. A shoe treer check-up is advised for continued cardiovascular oversight. Patient was informed and verbally consented to the use of an ambient scribe for clinic note documentation during this visit. I discussed ongoing management of the patient?s anxiety and depression with bupropion and maintenance of her antihypertensive regimen of labetalol. I emphasized the importance of adhering to iron supplementation for her history of anemia and potentially reassessing vitamin D levels. Weight management strategies involved dietary and lifestyle recommendations, emphasizing portion control and meal timing. As prior renal Doppler results were normal, I noted the importance of continuing her current blood pressure management without immedi ate need for further testing. I advised reviewing Pap smear results for accurate record-keeping and encouraged routine cardiology follow-up for comprehensive cardiovascular care. Orders: Orders IRON PROFILE Today D64.9 - Anemia, unspecified Thyroid Stimulating Hormone Today E66.811 - Obesity, class 1, Z68.31 - Body mass index [BMI] 31.0-31.9, adult Complete Blood Count Auto Diff Today D64.9 - Anemia, unspecified Vitamin D 25-OH Total Today E55.9 - Vitamin D deficiency, unspecified Comprehensive [place]. Panel Fast Today Z00.00 - Encounter for general adult medical examination without abnormal findings Lipid Panel Today Z00.00 - Encounter for general adult medical examination without abnormal findings Patient Instructions: - Continue bupropion and labetalol as prescribed. - Maintain adherence to iron supplements. - Schedule a vitamin D level check. - Discuss dietary and lifestyle modifications for weight management. - Verify Pap smear results. - Arrange shoe treer follow-up if necessary.
[2024-06-12 09:21] VITALS: BP 112/82; BMI 31.5
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
--- OUTSIDE RECORDS SUMMARY | 2024-06-12 10:16 | XMS_ITS | Encounter Summary ---
Author Organization [facility] Address [address] [place] [address] Phone Care Team Providers Care Board Handler Name Role Phone Camille Cabral MD Primary Care Provider [phone] Encounter Details Date Type Department Care Team (Late st Contact Info) Description 04/23/2022 Office Communication [facility] [address] [place] [phone] Pir Acosta MD Social History Tobacco Use Types Packs/Day Years [...] on file documented as of this encounter Plan of Treatment Not on file documented as of this encounter Visit Diagnoses Not on filedocumented in this encounter Care Teams Board Handler Relationship Specialty Start Date End Date Camille Cabral MD [address] [place], [place] PCP - General Internal Medicine 09/01/22 documented as of this encounter
--- OUTSIDE RECORDS SUMMARY | 2024-06-12 10:16 | XMS_ITS | Clinical Summary ---
Author Organization [facility] Address [address] [facility] [address] [place] [address] Phone Care Team Providers Care Contact Lens Blocker Name Role Phone Camille Cabral MD Primary Care Provider [phone] Allergies No known active allergies Medications labetalol (NORMODYNE) 200 MG tablet Take 1 tablet (200 mg total) by mouth in the morning and 1 tablet (200 mg total) in the evening. 60 tablet 3 01/31/2024 Active Active Problems Problem Noted Date Diagnosed Date Sterilization requested 03/18/2023 03/18/19 24 Obese class I 03/18/2023 03/18/2023 Renal artery stenosis of unknown cause 3 Primary hypertrophic cardiomyopathy 04/20/2022 Migraine 04/20/2022 Hypertensive disorder 04/20/2022 Comments Yes Immunizations Name Administration Dates Next Due Tdap 06/05/2022 Family History Medical History Relation Comments Hypertension Father Hypertension Mother Relation Status Comments Father Mother Social History Tobacco Use Types Packs/Day Years Used Date Smoking Tobacco: Never Smokeless Tobacco: Never Tobacco Cessation:Counseling Given: No Alcohol Use Standard Drinks/Week Comments Never 0 (1 standard drink = 0.6 oz pur e alcohol) Comments Yes Sex and Gender Information Value Date Recorded Sex Assigned at Not on file Legal Sex Female 10:40 AM EST Gender Identity Not on file Sexual Orientation Not on file Last Filed Vital Signs Vital Sign Reading Time Taken Comments Blood Pressure 110/58 03/26/2023 11:02 AM EST Pulse 87 03/26/2023 11:02 AM EST Temperature - - Respiratory Rate - - Oxygen Saturation 98% 09/01/2022 1:27 PM EDT Inhaled Oxygen Concentration - - Weight 74.8 kg (165 lb) 03/26/2023 11:02 AM EST Height 162.6 cm (5' 4 ) 09/01/2022 1:27 PM EDT Body Mass Index 28.32 09/01/2022 1:27 PM EDT Plan of Treatment Health Maintenance Due Date Last Done Comments Pneumococcal Vaccine: Pediat rics (0 to 5 Years) and At-Risk Patients (6 to 64 Years) (1 of 2 - PCV) 1994 Hepatitis B Vaccine (1 of 3 - 19+ 3-dose series) 10/31 Influenza Vaccine (Season Ended) 2024 Procedures Procedure Name Priority Date/Time Associated Diagnosis Comments ALT EXT LABS Routine 03/23/2024 from Last 3 Months Results * (ABNORMAL) ALT EXT LABS (03/23/2024) WBC 6.7 3.3 - 10.0 10*3/ML Red Blood Cell Count 4.35 Hemoglobin 11.2(A) 12.0 - 16.0 Hematocrit 36.1 36.0 - 46.0 Platelets 294 150 - 399 10*3/UL BUN 8 4 - 21 mg/dL Creatinine 0.56 0.50 - 1.10 mg/dL Calcium 9.4 8.7 - 10.7 mg/dL Sodium 140 137 - 147 Potassium 3.9 3.4 - 5.5 Chloride 104.0 99.0 - 108.0 Bicarbonate (CO2) 24 22 - 30 mmol/L 03/23/2024 us Historical Provider LAB BLOOD ORDERABLES Jo l Result from Last 3 Months Insurance CIG[employer] CIGNA Care Teams Contact Lens Blocker Relationship Specialty Start Date End Date Camille Cabral MD [address] [facility] [address] [place] [address] PCP - General Internal Medicine 09/01/22
== END 2024-06-12 09:51 | disposition home or self-care (01) ==
LOC: HO.HMCH 09:15
PROVIDERS: PCP Internal Medicine; Visit Provider Internal Medicine
DX: Z00.00 Encounter for general adult medical examination without abnormal findings (principal); F33.0 Major depressive disorder, recurrent, mild; E66.811 Obesity, class 1; Z68.31 Body mass index [BMI] 31.0-31.9, adult; I42.2 Other hypertrophic cardiomyopathy

== ENCOUNTER → 2024-06-12 09:14 | Outpatient (BNVA) | payer OTHER, SELFPAY | PROVIDERS: PCP Internal Medicine; Visit Provider Internal Medicine | DX: Z00.00 Encounter for general adult medical examination without abnormal findings (principal); F33.0 Major depressive disorder, recurrent, mild; I42.2 Other hypertrophic cardiomyopathy; E66.811 Obesity, class 1; Z68.31 Body mass index [BMI] 31.0-31.9, adult | CPT/HCPCS: 96127 ==

== ENCOUNTER 2024-06-13 09:07 | Outpatient (REF) | payer OTHER, SELFPAY ==
[2024-06-13 09:20] LABS: MANUAL DIFF FLAG NO
[2024-06-13 09:30] LABS: Basophils Percent Auto 0.4 % (0-2); Eosinophils Absolute Auto 0.2 X10*3/uL (0.0-0.4); Hematocrit 35.5 % (37.0-47.0); Hemoglobin 11.6 g/dl (12.0-16.0); Imm Gran Abs Auto 0.02 X10*3/uL (0.00-0.03); Imm Gran Pct Auto 0.4 % (0.0-0.4); Lymphocytes Absolute Auto 1.8 X10*3/uL (1.2-4.9); Lymphocytes Percent Auto 32.3 % (20-40); Mean Corpuscular HGB Conc 32.7 g/dl (31.0-35.0); Mean Corpuscular Hemoglobin 26.2 pg (27.0-33.0); Mean Corpuscular Volume 80.3 fL (80.0-98.0); Mean Platelet Volume 9.5 fL (9.4-12.3); Monocytes Absolute Auto 0.4 X10*3/uL (0.1-1.2); Monocytes Percent Auto 6.9 % (2-11); Neutrophils Absolute Auto 3.2 x10*3/uL (2.0-8.3); Platelet Count 287 X10*3/uL (160-400); Red Blood Count 4.42 X10*6/uL (4.20-5.50); White Blood Count 5.7 X10*3/uL (4.8-10.8)
--- OUTSIDE RECORDS SUMMARY | 2024-06-13 10:02 | XMS_ITS | Encounter Summary ---
Author Organization [facility] Address [address] [place] [address] Phone Care Team Providers Care Mannequin Wig Maker Name Role Phone Camille Cabral MD Primary Care Provider [phone] Encounter Details Date Type Department Care Team (Late st Contact Info) Description 04/23/2022 Office Communication [facility] [address] [place] [phone] Pir Acosta MD Social History Tobacco Use [...] on filedocumented in this encounter Care Teams Mannequin Wig Maker Relationship Specialty Start Date End Date Camille Cabral MD [address] [place], [place] PCP - General Internal Medicine 09/01/22 documented as of this encounter
--- OUTSIDE RECORDS SUMMARY | 2024-06-13 10:02 | XMS_ITS | Encounter Summary ---
Author Organization [facility] Address [address] [place] [address] Phone Care Team Providers Care Orchestra Musician Name Role Phone Camille Cabral MD Primary Care Provider [phone] Encounter Details Date Type Department Care Team (Late st Contact Info) Description 07/13/2022 Telephone [facility] [address] [place] [phone] Maricruz Do Social History Tobacco Use Types [...] on filedocumented in this encounter Care Teams Orchestra Musician Relationship Specialty Start Date End Date Camille Cabral MD [address] [facility] [address] [place] [address] PCP - General Internal Medicine 09/01/22 documented as of this encounter
--- OUTSIDE RECORDS SUMMARY | 2024-06-13 10:03 | XMS_ITS | Clinical Summary ---
Author Organization [facility] Address [address] [facility] [address] [place] [address] Phone Care Team Providers Care Social Media Content Manager Name Role Phone Camille Cabral MD Primary Care Provider [phone] Allergies No known active allergies Medications labetalol [...] 3 Months Insurance [employer]IG[employer] CIG[employer] Care Teams Social Media Content Manager Relationship Specialty Start Date End Date Camille Cabral MD [address] [facility] [address] [place] [address] PCP - General Internal Medicine 09/01/22
[2024-06-13 10:18] LABS: Alanine Aminotransferase 26 U/L (0-31); Albumin Level 4.4 g/dL (3.5-5.0); Alkaline Phosphatase 94 U/L (39-117); Anion Gap 9 (12-20); Aspartate Amino Transferase 21 U/L (5-31); Bilirubin Total 0.3 mg/dL (0.0-1.0); Blood Urea Nitrogen 9 mg/dL (9-16); Calcium 9.3 mg/dL (8.4-10.2); Carbon Dioxide 26 mmol/L (22-29); Chloride 108 mmol/L (96-108); Cholesterol 234 mg/dL (<200); Estimated Glomerular Filt Rate > 60; Glucose Fasting 84 mg/dL (60-99); HDL Cholesterol 70 mg/dL (>40); Iron 44 mcg/dL (30-160); LDL Cholesterol Calculated 141 mg/dL (<100); Percent Iron Saturation 13 % (15-50); Potassium 4.3 mmol/L (3.3-5.1); Sodium 139 mmol/L (135-145); Total Iron Binding Capacity 351 mcg/dL (228-428); Total Protein 7.3 g/dL (6.5-8.0); Triglycerides 118 mg/dL (<150); Unsaturated Iron Binding 307 ug/dL
[2024-06-13 10:34] LABS: Thyroid Stimulating Hormone 2.17 uIU/mL (0.32-4.0); Vitamin D 25-OH Total 13.4 ng/mL (>30)
== END 2024-06-13 09:08 | disposition home or self-care (01) ==
LOC: HO.LAB 09:07
PROVIDERS: PCP Internal Medicine; Visit Provider Internal Medicine
DX: Z00.00 Encounter for general adult medical examination without abnormal findings (principal); D64.9 Anemia, unspecified; E66.811 Obesity, class 1; Z68.31 Body mass index [BMI] 31.0-31.9, adult; E55.9 Vitamin D deficiency, unspecified
CPT/HCPCS: 36415; 80053; 80061; 82306; 83540; 84443; 85025

== ENCOUNTER 2024-12-12 08:25 | Outpatient (AMB) | payer OTHER, SELFPAY ==
[2024-12-12 08:35] VITALS: BP 128/90; PULSE 70; TEMP 36.3; O2SAT 98; BMI 31.6
--- NOTE | 2024-12-12 08:35 | A.OFFPC_ITS ---
Vital Signs 12/12/24 08:35 Height 5 ft 2 in Weight 173 lb BMI 31.6 BP 128/90 H Blood Pressure Location Lt brachial Position Sitting Pulse 70 Pulse Source Pulse Oximeter Temp 97.3 F Temp Source Temporal Artery Scan Pulse Oximetry (%) 98 Oxygen Delivery Method Room Air Intake Visit Reasons: bp,depression Basket Machine Operator Required: No Accompanied by: Self / Same As Patient Allergies No Known Allergies Allergy (Verified 12/12/24 08:54) Medication List - Last Reconciled 12/12/24 by Camille Irvin MD cholecalciferol (vitamin D3) 50 mcg PO DAILY 90 days ferrous sulfate 325 mg PO DAILY 90 days labetalol 200 mg PO BID Tobacco use date assessed: 12/12/24 Dental Screening Dental Screen Date: 12/12/24 Did you have a dental visit in the last 12 months?: Yes Did you have a dental problem in the last 6 months where you did not have access to dental care?: No Was dental information given to patient?: Patient has dentist HPI HPI Comments History of Present Illness Details The patient is a 34-year-old female presenting for follow-up of hypertension and routine laboratory tests. The patient has a history of hypertension, currently managed with labetalol 200 mg twice daily. Her blood pressure has been stable, although she reports occasional elevations. She also has a history of asymmetric septal hypertrophy, for which she was advised to follow up with cardiology annually. The kieselguhr regenerator operator plans to monitor the condition to assess any progression. The patient has been noted to have hyperlipidemia, with previous cholesterol levels being slightly elevated. Routine laboratory tests are planned to reassess her cholesterol and hemoglobin levels. She also has anemia and low vitamin-D on supplements. Her mild recurrent major depression has been stable without the need of any medication. [facility] Medical History Renal artery stenosis Mild recurrent major depression Hypovitaminosis D Encounter for physical examination Renal calculi Overweight Surgical History History of tubal ligation Family History Mother Hypertension Father Pure hypercholesterolemia Hypertension Social History Housing: Apartment Alcohol intake: current Alcohol intake frequency: holidays/special occasions only Alcohol type: wine Patient Tobacco Use Status: Never used Tobacco e-Cigarette/Vaping Use: Never Used Second Hand Smoke Exposure: No service: No Current occupational status: employed Current occupational exposures/hazards: No Cognitive needs: No Hearing needs: No Vision needs: No Questionnaire PHQ-9 Over the last 2 weeks, how often have you been bothered by any of the following problems? 1. Little interest or pleasure in doing things: not at all 2. Feeling down, depressed, or hopeless: not at all 3. Trouble falling or staying asleep, or sleeping too much: not at all 4. Feeling tired or having little energy: several days 5. Poor appetite or overeating: not at all 6. Feeling bad about yourself - or that you are a failure or have let yourself or your family down: not at all 7. Trouble concentrating on things, such as reading the newspaper or watching television: not at all 8. Moving or speaking so slowly that other people could have noticed. Or the opposite - being so fidgety or restless that you have been moving around a lot more than usual: not at all 9. Thoughts that you would be better off or of hurting yourself in some way: not at all Total score: 1 Depression Screening Interpretation: Positive Depression Screening Follow-up: Existing condition, In treatment and Follow-up Visit Requested Depression Screening Done: Yes 36142 - PHQ-9 Billing: Yes Source: Developed by Drs. Jonny Moyer, Flora Lynch, Nagi Lopez and colleagues, with an educational rao from [employer]. Thrive Questionnaire Date Thrive assessed: 06/12/24 I am a: Patient What is your living situation today?: I have a steady place to live Within the past 12 months, did the food you bought not last and you didn't have the money to get more?: Never true Within the past 12 months, did you worry whether your food would run out before you got money to buy more?: Never true Do you have trouble paying for medicines?: No Do you have trouble getting transportation to medical appointments?: No Do you have trouble paying your heating and electricity bill?: No Do you have trouble taking care of your child, family member or friend?: No Do you have trouble with day-to-day activities such as bathing, preparing meals, shopping, managing finances, etc.?: No Are you currently unemployed and looking for a job?: No Are you interested in more education?: No Please select the resources that you would like help with: None Currently or been in a relationship where the following occur: No concerns reported THRIVE Score: 0 AUDIT C Alcohol Use Questionnaire (AUDIT-C) 1. How often do you have a drink containing alcohol?: Monthly or less 2. How many drinks containing alcohol do you have on a typical day when you are drinking?: 1 or 2 3. How often do you have six or more drinks on one occasion?: Never Total Score: 1 Score Reviewed/Action Taken: No EMILY-7 AMB Questionnaire EMILY-7 Date EMILY - 7 assessed: 06/12/24 Feeling nervous, anxious, or on edge: 1 = Several days Not being able to stop or control worryin = Several days Worrying too much about different things: 0 = Not at all Trouble relaxin = Not at all Being so restless that it is hard to sit still: 0 = Not at all Becoming easily annoyed or irritable: 0 = Not at all Feeling afraid as if something awful might happen: 1 = Several days Total EMILY-7 score (0-4 normal; 5-9 mild; 10-14 moderate; 15-21 severe): 3 Source: Developed by Drs. Jonny Moyer, Flora Lynch, Nagi Lopez and colleagues, with an educational rao from [employer]. EMILY-7 Assessment Billing EMILY-7 Assessment Tool: EMILY-7 Assessment 78562 Review of Systems Const All systems reviewed & are unremarkable except as noted in HPI and below Card Denies chest pain at rest, Denies chest pain with activity, Denies edema, Denies irregular heart rhythm, Denies claudication, Denies dyspnea, Denies dyspnea on exertion, Denies orthopnea, Denies paroxysmal nocturnal dyspnea and Denies slow heart rate Resp Denies cough, Denies dyspnea and Denies dyspnea on exertion Physical exam (Primary Care) Vital Signs: Last Vital Signs Temp 97.3 F 12/12/24 08:35 Pulse 70 12/12/24 08:35 BP 128/90 H 12/12/24 08:35 Pulse Ox 98 12/12/24 08:35 Oxygen Delivery Method Room Air 12/12/24 08:35 BMI result Body Mass Index 31.6 BMI Assessment/Plan discussion: High BMI High, discussed plan: lifestyle, weight reduction, dietary and physical activity Tobacco/Smoking Status: Tobacco use Status Tobacco use date assessed 12/12/24 12/12/24 08:38 Patient Tobacco Use Status Never used Tobacco 12/12/24 08:38 e-Cigarette/Vaping Use Never Used 12/12/24 08:38 PHQ-9: PHQ-9 Score PHQ-9: Total score 1 12/12/24 08:38 Depression Screening Interpretation: Positive Depression Screening Follow-up: Existing condition, In treatment and Follow-up Visit Requested Thrive Assessment: Date of Thrive Assessment Date Thrive assessed 06/12/24 12/12/24 08:38 Currently or been in a relationship where the following occur: No concerns reported Resp Effort & Inspection: normal respiratory effort Auscultation: clear to auscultation bilaterally Cardio Jugular venous distension: no JVD Rate: regular rate Rhythm: regular rhythm Heart sounds: S1 normal heart sound present and S2 normal heart sound present Extrem General: Yes full ROM Coding Level of Care Code Est Pt Level 4 (05484) Complex EM visit Add On G2211 Diagnoses Essential hypertension I10 Mild recurrent major depression F33.0 Asymmetric septal hypertrophy I42.2 Hypovitaminosis D E55.9 Iron deficiency anemia due to chronic blood loss D50.0 Additional Codes PHQ-9 - 28319 - PHQ-9 Billing: Yes ([id number]) EMILY-7 Assessment Billing - EMILY-7 Assessment Tool: EMILY-7 Assessment 12120 ([id number]) Time Spent (min) 20 Assessment & Plan Assessment & Plan (1) Essential hypertension: Code(s): I10 - Essential (primary) hypertension Category: Medical (2) Mild recurrent major depression: Code(s): F33.0 - Major depressive disorder, recurrent, mild Category: Medical (3) Asymmetric septal hypertrophy: Code(s): I42.2 - Other hypertrophic cardiomyopathy Category: Medical (4) Hypovitaminosis D: Code(s): E55.9 - Vitamin D deficiency, unspecified Category: Medical (5) Iron deficiency anemia due to chronic blood loss: Code(s): D50.0 - Iron deficiency anemia secondary to blood loss (chronic) Category: Medical Plan Plan Patient was informed and verbally consented to the use of an ambient scribe for clinic note documentation during this visit. 1. Hypertension The patient's hypertension is currently managed with labetalol 200 mg twice daily, and her blood pressure has been stable with occasional elevations. Continued monitoring and medication adherence are advised. 2. Asymmetric Septal Hypertrophy The patient is advised to follow up with cardiology annually to monitor the progression of asymmetric septal hypertrophy. An echocardiogram is planned to assess the current status. 3. Hyperlipidemia Routine laboratory tests are planned to reassess cholesterol levels, given the previous slight elevation. Dietary modifications and continued monitoring are recommended. Orders: Orders IRON PROFILE Today D64.9 - Anemia, unspecified Vitamin D 25-OH Total Today E55.9 - Vitamin D deficiency, unspecified CA echo transthoracic complete Today I42.2 - Other hypertrophic cardiomyopathy Complete Blood Count Auto Diff Today D64.9 - Anemia, unspecified Lipid Panel Today E78.5 - Hyperlipidemia, unspecified Comprehensive Adger. Panel Fast Today I10 - Essential (primary) hypertension Referrals Cardiology Referral I42.2 - Other hypertrophic cardiomyopathy
--- OUTSIDE RECORDS SUMMARY | 2024-12-12 08:53 | XMS_ITS | Encounter Summary ---
Author Organization [facility] Address [address] [place] [address] Phone Care Team Providers Care Area Cleaner Name Role Phone Camille Cabral MD Primary Care Provider [phone] Encounter Details Date Type Department Care Team (Late st Contact Info) Description 04/23/2022 Office Communication [facility] [address] [place] [id number] Pir Acosta MD Social History Tobacco Use [...] on filedocumented in this encounter Care Teams Area Cleaner Relationship Specialty Start Date End Date Camille Cabral MD [address] [place], [place] PCP - General Internal Medicine 09/01/22 documented as of this encounter
--- OUTSIDE RECORDS SUMMARY | 2024-12-12 08:53 | XMS_ITS | Clinical Summary ---
Author Organization [facility] Address [address] [place] [address] Phone Care Team Providers Care Swiss Machinist Name Role Phone Camille Cabral MD Primary Care Provider [phone] Allergies No known active allergies Medications labetalol [...] 04/20/2022 Hypertensive disorder 04/20/2022 Comments Yes Immunizations Immunization Administration Dates Next Due Tdap 06/05/2022 Family [...] Health Maintenance Due Date Last Done Comments Hepatitis B Vaccine (1 of 3 - 19+ 3-dose series) 10/31 Pneumococcal Vaccine: Peds ( 0 to 5 Years) and At-Risk Patients (6 to 49 Years) (1 of 2 - PCV) 11/01/2007 Influenza Vaccine (#1) 2024 Insurance Cigna Cigna Care Teams Swiss Machinist Relationship Specialty Start Date End Date Camille Cabral MD [address] [place], [place] PCP - General Internal Medicine 09/01/22
--- OUTSIDE RECORDS SUMMARY | 2024-12-12 08:53 | XMS_ITS | Encounter Summary ---
Author Organization [facility] Address [address] [place] [address] Phone Care Team Providers Care Wet Crown Blocking Operator Name Role Phone Camille Cabral MD Primary Care Provider [phone] Encounter Details Date Type Department Care Team (Late st Contact Info) Description 07/13/2022 Telephone [facility] [address] [place] [phone] Maricruz Do Social History Tobacco Use Types [...] on filedocumented in this encounter Care Teams Wet Crown Blocking Operator Relationship Specialty Start Date End Date Camille Cabral MD [address] [facility] [address] [place] [address] PCP - General Internal Medicine 09/01/22 documented as of this encounter
== END 2024-12-12 09:05 | disposition home or self-care (01) ==
LOC: HO.HMCH 08:25
PROVIDERS: PCP Internal Medicine; Visit Provider Internal Medicine
DX: I10 Essential (primary) hypertension (principal); F33.0 Major depressive disorder, recurrent, mild; I42.2 Other hypertrophic cardiomyopathy; E55.9 Vitamin D deficiency, unspecified; D50.0 Iron deficiency anemia secondary to blood loss (chronic)

== ENCOUNTER 2024-12-12 08:25 | Outpatient (REF) | payer OTHER, SELFPAY ==
[2024-12-12 09:30] LABS: MANUAL DIFF FLAG NO
[2024-12-12 10:36] LABS: Hematocrit 37.9 % (37.0-47.0); Hemoglobin 12.3 g/dl (12.0-16.0); Imm Gran Abs Auto 0.03 X10*3/uL (0.00-0.03); Imm Gran Pct Auto 0.5 % (0.0-0.4); Lymphocytes Absolute Auto 1.9 X10*3/uL (1.2-4.9); Mean Corpuscular HGB Conc 32.5 g/dl (31.0-35.0); Mean Corpuscular Hemoglobin 26.3 pg (27.0-33.0); Mean Corpuscular Volume 81.2 fL (80.0-98.0); NRBC Abs Auto 0.000 X10*3/uL (0.0-0.012); NRBC Pct Auto 0.0 /100WBC (0.0-0.2); Platelet Count 261 X10*3/uL (160-400); Red Blood Count 4.67 X10*6/uL (4.20-5.50); White Blood Count 5.9 X10*3/uL (4.8-10.8)
[2024-12-12 11:24] LABS: Alanine Aminotransferase 21 U/L (0-31); Albumin Level 4.6 g/dL (3.5-5.0); Alkaline Phosphatase 98 U/L (39-117); Anion Gap 11 (12-20); Aspartate Amino Transferase 23 U/L (5-31); Blood Urea Nitrogen 7 mg/dL (9-16); Calcium 9.2 mg/dL (8.4-10.2); Carbon Dioxide 29 mmol/L (22-29); Chloride 106 mmol/L (96-108); Cholesterol 255 mg/dL (<200); Estimated Glomerular Filt Rate > 60; HDL Cholesterol 70 mg/dL (>40); Iron 75 mcg/dL (30-160); Percent Iron Saturation 23 % (15-50); Potassium 4.0 mmol/L (3.3-5.1); Sodium 142 mmol/L (135-145); Total Iron Binding Capacity 333 mcg/dL (228-428); Total Protein 7.5 g/dL (6.5-8.0); Triglycerides 95 mg/dL (<150); Unsaturated Iron Binding 258 ug/dL
== END 2024-12-12 08:26 | disposition home or self-care (01) ==
LOC: HO.LAB 08:25
PROVIDERS: PCP Internal Medicine; Visit Provider Internal Medicine
DX: I10 Essential (primary) hypertension (principal); E78.5 Hyperlipidemia, unspecified; F33.0 Major depressive disorder, recurrent, mild; I42.2 Other hypertrophic cardiomyopathy; E55.9 Vitamin D deficiency, unspecified; D50.0 Iron deficiency anemia secondary to blood loss (chronic)
CPT/HCPCS: 36415; 80053; 80061; 82306; 83540; 85025; 96127

== ENCOUNTER → 2025-01-12 13:43 | Outpatient (REF) | payer OTHER, SELFPAY ==
--- NOTE | 2025-01-12 13:51 | CA_ITS ---
Transthoracic Echocardiogram Patient (Last, First, Middle): Nori Payne, Gender: F Date of : 1990 Age: 34 Procedure Date: 01/12/2025 Procedure Type: Transthoracic Echocardiogram Location: OP Height: 162.56 cm Weight: 77.11 kg BSA: 1.83 m2 Heart Rate: bpm BP: 124 / 90 mmHg Refinery Operator Helper: TO Referring MD: Camille Irvin MD General Production Laborer: Gustavo Henao MD Symptoms: I42.2 - Other hypertrophic cardiomyopathy Study Quality: Adequate ECG Rhythm: Sinus Conclusions: - Trace to small pericardial effusion noted, otherwise normal study Findings Left Ventricle Normal left ventricular size, thickness, and systolic function. The visually estimated ejection fraction is between 60-65%. Spectral Doppler is indicative of a normal filling pattern. Right Ventricle Normal right ventricular cavity size and systolic function. Atria Both atria are normal in size. There is no evidence of interatrial shunt. Aortic Valve Normal aortic valve structure and function. There is no aortic valve stenosis. There is no aortic valve regurgitation. Mitral Valve Normal mitral valve structure and function. There is trace mitral valve regurgitation. There is no mitral valve stenosis. Pulmonic Valve The pulmonic valve is likely normal. There is trace to mild pulmonic valve regurgitation. Tricuspid Valve Normal tricuspid valve structure. Tricuspid regurgitation envelope is inadequate for calculation of right ventricular systolic pressure. Normal right atrial pressure. There is no evidence of pulmonary hypertension. Great Vessels All visible segments of the aorta are normal in size. The pulmonary artery was not well visualized. Venous The inferior vena cava is normal in size and collapses greater than 50% with inspiration. Pericardium/Pleural There is a small circumferential pericardial effusion. Measurements 2D Linear Measurements IVSd: 0.76 0.6-0.9/0.6-1.0 cm LVIDd: 4.90 3.9-5.3/4.2-5.9 cm LVIDd Index: 2.68 2.4-3.2/2.2-3.1 cm/m2 LVIDs: 2.92 2.0-3.6 cm LVPWd: 0.79 0.7-1.1 cm LA Diam: 3.40 2.7-3.8/3.0-4.0 cm LAIDs Index: 1.86 1.5-2.3 cm/m2 LV Mass: 156.71 67-162/88-224 g LV Mass Index: 85.64 43-95/49-115 g/m2 LVOT Diam: 2.00 3.0+(-)1.3 cm 2D Systolic Function EF 4C: 63.70 >55% EF 2C: 63.20 >55% EF BiP: 62.90 >55% Mitral Valve MV Pk E: 0.79 MV PK A: 0.67 MV Decel Time: 166.00 E/A: 1.20 E'Lateral: 8.92 E'Medial: 9.36 E/E' Med: 8.50 E/E' Lat: 8.90 PHT: 48.00 MVA PHT: 4.58 Decel Price: 4.79 Aortic Valve AoV Pk Jerry: 1.39 AoV Mn Jerry: 0.92 AoV VTI: 0.29 AoV Pk Grad: 8.00 Aov Mn Grad: 4.00 GABRIELLE Cont.VTI: 2.62 LVOT LVOT Pk Jerry: 1.24 LVOT Mn Jerry: 0.88 LVOT VTI: 0.24 LVOT Pk Grad: 6.00 LVOT Mn Grad: 3.00 LVOT Diam: 2.00 LVOT Area: 3.14 Diastolic Function MV Pk E: 0.79 MV Pk A: 0.67 E/A: 1.20 E'Medial: 9.36 E/E' Med: 8.50 E' Laterial: 8.92 E/E' Lat: 8.90 Right Ventricle TAPSE (mm): 23.00 TVS' Jerry: 15.30 Tricuspid Valve RA Press: 3.00 Great Vessels Aorta Sinus of Valsalva: 3.13 2.0-3.5 cm Ao Asc: 3.40 2.1-3.4 cm Ao Arch: 2.80 Updated in Other Vendor System with Status of Final Gustavo Henao MD electronically signed on 01/12/2025 3:10:50 PM with status of Final
== END ==
LOC: HO.CARD 13:43
PROVIDERS: PCP Internal Medicine; Visit Provider Internal Medicine
DX: I42.2 Other hypertrophic cardiomyopathy (principal)
CPT/HCPCS: 93306

== ENCOUNTER → 2025-01-12 13:51 | Outpatient (BNV) | payer OTHER, SELFPAY | PROVIDERS: PCP Internal Medicine; Visit Provider Internal Medicine Cardiovascular Disease | DX: I42.2 Other hypertrophic cardiomyopathy (principal) | CPT/HCPCS: 93306 ==

== ENCOUNTER 2025-01-25 08:42 | Outpatient (AMB) | payer OTHER, SELFPAY ==
[2025-01-25 08:46] VITALS: BP 118/62; PULSE 66; BMI 31.9
--- NOTE | 2025-01-25 08:46 | A.OFFVIS_ITS ---
Vital Signs 01/25/25 08:46 Height 5 ft 2 in Weight 174 lb 2.643 oz BMI 31.9 BP 118/62 Blood Pressure Location Lt brachial Position Sitting Pulse 66 Pulse Source Monitor Intake Visit Reasons: overdue f/u req dr. underwood/other hypertrophic cardio Allergies No Known Allergies Allergy (Verified 12/12/24 08:54) Medication List - Last Reconciled 01/25/25 by Kim Vences, FLANGE MACHINE OPERATOR-C cholecalciferol (vitamin D3) 50 mcg PO DAILY 90 days ferrous sulfate 325 mg PO DAILY 90 days labetalol 200 mg PO BID HPI HPI overdue f/u req dr. underwood/other hypertrophic cardio: Details: Nori is a 34 yo female with PMH of HTN, atypical CP, mild asymmetrical septal hypertrophy who recently had echocardiogram and now presents for follow up. Her last prior visit was 10/08/22. Today she states that she has been doing well with no cardiac concerns. She has not been having any chest discomfort like previously reported. No heart palpitations, shortness of breath, lightheadedness, significant leg edema. She does get sock markings. She reports being busy but does no routine exercise. Takes meds as directed. [facility] Medical History Renal artery stenosis Mild recurrent major depression Hypovitaminosis D Encounter for physical examination Renal calculi Overweight Surgical History History of tubal ligation Family History Mother Hypertension Father Pure hypercholesterolemia Hypertension Social History Housing: Apartment Alcohol intake: current Alcohol intake frequency: holidays/special occasions only Alcohol type: wine Patient Tobacco Use Status: Never used Tobacco e-Cigarette/Vaping Use: Never Used Second Hand Smoke Exposure: No service: No Current occupational status: employed Current occupational exposures/hazards: No Cognitive needs: No Hearing needs: No Vision needs: No Review of Systems Const All systems reviewed & are unremarkable except as noted in HPI and below Denies weakness ENT Denies dizziness Card Denies chest pain, Denies chest pain with activity, Denies syncope, Denies rapid heart rate, Denies pedal edema, Denies edema, Denies leg edema, Denies lightheadedness, Denies palpitations, Denies dyspnea, Denies dyspnea on exertion and Denies orthopnea Resp Denies cough, Denies dyspnea and Denies dyspnea on exertion GI Denies hematochezia and Denies change in stool character Musc Denies abnormal gait, Denies muscle cramps, Denies muscle weakness, Denies numbness, Denies radiating pain into limb and Denies tingling Neuro Denies abnormal gait, Denies dizziness, Denies syncope, Denies numbness, Denies tingling and Denies weakness Endo Denies palpitations Physical Exam Vital Signs: Last Vital Signs Pulse 66 01/25/25 08:46 BP 118/62 01/25/25 08:46 BMI result Body Mass Index 31.9 Const General: cooperative, healthy appearing, comfortable and no acute distress Orientation/consciousness: patient oriented x3 Neck Neck: Yes normal visual inspection and Yes no JVD Resp Effort & Inspection: normal respiratory effort Auscultation: clear to auscultation bilaterally, no rales, no rhonchi and no wheezes Cardio Rate: regular rate Rhythm: regular rhythm Heart sounds: S1 normal heart sound present, S2 normal heart sound present, no gallops, no murmurs and no rubs Neuro General: patient oriented x3 Extrem General: Yes normal to inspection and No no pedal edema Psych Appearance: grossly normal Mental Status: mental status grossly normal Speech and movement: Normal speech and movement present Office Procedures EKG Details: Today, read by me normal sinus rhythm, septal Q wave - unchanged from prior, rate 66, Qtc 387ms [id number], Complete Assessment & Plan Assessment & Plan (1) Asymmetric septal hypertrophy: Code(s): I42.2 - Other hypertrophic cardiomyopathy Category: Medical Plan: Echocardiogram on 12/26/2021 showing EF 55-60%, mild septal asymmetric hypertrophy, normal valves. EKG does show sinus rhythm with septal Q-wave. A repeat echocardiogram 01/22/2023 shows EF 65%, normal LV wall thickness, no clear septal hypertrophy. Repeat echocardiogram 01/12/2025 showing EF 60-65%, normal LV wall thickness, trace to small pericardial effusion. (2) Essential hypertension: Code(s): I10 - Essential (primary) hypertension Category: Medical Plan: Blood pressure goal less than 130/80. Well controlled at this time. Continue labetalol. (3) Pericardial effusion: Code(s): I31.39 - Other pericardial effusion (noninflammatory) Category: Medical Plan: Recent echo showing trace to small pericardial effusion. Asymptomatic. Will check limited echo in 6 months to re-evaluate. Plan I reviewed the recent echocardiogram findings with the patient, explaining that the small amount of fluid around the heart is not currently a problem. I recommended a limited repeat echocardiogram in six months to monitor for any changes. I advised the patient to continue with the current labetalol dosage, as blood pressure is well-controlled. I informed the patient that our scheduling department will be in contact to arrange the follow-up scan and that we will schedule a follow-up appointment after that is completed. Orders: Orders CA Echo Limited 5 Months I31.39 - Other pericardial effusion (noninflammatory) Patient Instructions: - Continue taking your Labetalol medication as prescribed to keep your blood pressure controlled. - We will schedule a repeat, shorter heart ultrasound (echocardiogram) in about six months to re-check the small amount of fluid around your heart. - Our scheduling office will call you to set up the appointment for this ultrasound. - Plan to follow up in the office after your next ultrasound is complete. Patient was informed and verbally consented to the use of an ambient scribe for clinic note documentation during this visit. Visit time spent on chart review, interview, assessment, orders, documentation. Coding Level of Care Code Est Pt Level 3 (75262) Complex EM visit Add On G2211 Diagnoses Asymmetric septal hypertrophy I42.2 Essential hypertension I10 Pericardial effusion I31.39 CPT Codes EKG - CPT: [id number], Complete ([id number]) Time Spent (min) 22
== END 2025-01-25 09:10 | disposition home or self-care (01) ==
LOC: HO.HCS 08:42
PROVIDERS: PCP Internal Medicine; Visit Provider Nurse Practitioner Family
DX: I42.2 Other hypertrophic cardiomyopathy (principal); I10 Essential (primary) hypertension; I31.39 Other pericardial effusion (noninflammatory)
CPT/HCPCS: 93010; 99213

== ENCOUNTER → 2025-01-25 08:42 | Outpatient (BNVA) | payer OTHER, SELFPAY | PROVIDERS: PCP Internal Medicine; Visit Provider Nurse Practitioner Family | DX: I10 Essential (primary) hypertension (principal); I31.39 Other pericardial effusion (noninflammatory); I42.2 Other hypertrophic cardiomyopathy | CPT/HCPCS: 93005 ==

== ENCOUNTER 2025-02-16 09:39 | Outpatient (AMB) | payer OTHER, SELFPAY ==
[2025-02-16 09:42] VITALS: BP 134/70; PULSE 74; O2SAT 98; BMI 32.6
--- NOTE | 2025-02-16 09:42 | MHC.PC.OV ---
Vital Signs 02/16/25 09:42 Height 5 ft 2 in Weight 178 lb BMI 32.6 BP 134/70 Blood Pressure Location Lt brachial Position Sitting Pulse 74 Pulse Source Pulse Oximeter Pulse Oximetry (%) 98 Oxygen Delivery Method Room Air Intake Visit Reasons: 02/04 Chest pain/burning sensation Allergies No Known Allergies Allergy (Verified 02/16/25 09:42) Medication List - Last Reconciled 02/16/25 by Alida Perez NP cholecalciferol (vitamin D3) 50 mcg PO DAILY 90 days ferrous sulfate 325 mg PO DAILY 90 days labetalol 200 mg PO BID Tobacco use date assessed: 12/12/24 Dental Screening Dental Screen Date: 12/12/24 HPI HPI Comments History of Present Illness Details 34 y/o female presents for EDF follow-up. PMHx significant for HTN, anemia, and previous renal artery stenosis. She was admitted at [facility] from 02/03?02/04 for evaluation and treatment of epigastric chest pain/burning. States she has had similar symptoms in the past and was previously advised to start Omeprazole, which she has been taking consistently. Reports the burning sensation has never lasted this long previously. All labs, imaging, and EKG during hospitalization were unremarkable. TSH mildly elevated at 5.46 with normal T4 (0.71); advised to follow up outpatient. Today she reports one episode of dizziness, now fully resolved. Also notes unexplained weight gain despite eating healthy. Denies current chest pain, shortness of breath, palpitations, nausea, vomiting, melena, hematemesis, fever, or chills. [facility] Medical History Renal artery stenosis Mild recurrent major depression Hypovitaminosis D Encounter for physical examination Renal calculi Overweight Surgical History History of tubal ligation Family History Mother Hypertension Father Pure hypercholesterolemia Hypertension Social History Housing: Apartment Alcohol intake: current Alcohol intake frequency: holidays/special occasions only Alcohol type: wine Patient Tobacco Use Status: Never used Tobacco Tobacco use type: Cigarette e-Cigarette/Vaping Use: Never Used Second Hand Smoke Exposure: No service: No Current occupational status: employed Current occupational exposures/hazards: No Cognitive needs: No Hearing needs: No Vision needs: No Questionnaire Thrive Questionnaire Date Thrive assessed: 06/12/24 I am a: Patient What is your living situation today?: I have a steady place to live Within the past 12 months, did the food you bought not last and you didn't have the money to get more?: Never true Within the past 12 months, did you worry whether your food would run out before you got money to buy more?: Never true Do you have trouble paying for medicines?: No Do you have trouble getting transportation to medical appointments?: No Do you have trouble paying your heating and electricity bill?: No Do you have trouble taking care of your child, family member or friend?: No Do you have trouble with day-to-day activities such as bathing, preparing meals, shopping, managing finances, etc.?: No Are you currently unemployed and looking for a job?: No Are you interested in more education?: No Please select the resources that you would like help with: None Currently or been in a relationship where the following occur: No concerns reported THRIVE Score: 0 EMILY-7 AMB Questionnaire EMILY-7 Date EMILY - 7 assessed: 06/12/24 Source: Developed by Drs. Jonny Moyer, Flora Lynch, Nagi Lopez and colleagues, with an educational rao from [employer]. Review of Systems Const All systems reviewed & are unremarkable except as noted in HPI and below Physical exam (Primary Care) Vital Signs: Last Vital Signs Pulse 74 02/16/25 09:42 BP 134/70 02/16/25 09:42 Pulse Ox 98 02/16/25 09:42 Oxygen Delivery Method Room Air 02/16/25 09:42 BMI result Body Mass Index 32.6 Tobacco/Smoking Status: Tobacco use Status Tobacco use date assessed 12/12/24 02/16/25 09:45 Patient Tobacco Use Status Never used Tobacco 02/16/25 09:45 Tobacco use type Cigarette 02/16/25 09:45 e-Cigarette/Vaping Use Never Used 02/16/25 09:45 Thrive Assessment: Date of Thrive Assessment Date Thrive assessed 06/12/24 02/16/25 09:45 Currently or been in a relationship where the following occur: No concerns reported Const General: no acute distress Orientation/consciousness: patient oriented x3 Resp Effort & Inspection: normal respiratory effort Auscultation: clear to auscultation bilaterally Cardio Heart sounds: S1 normal heart sound present and S2 normal heart sound present Neuro General: patient oriented x3, gait normal and moves all extremities Psych Speech and movement: Normal speech and movement present Coding Level of Care Code Est Pt Level 4 (07012) Diagnoses Chest pain R07.9 Time Spent (min) 25 Assessment & Plan Assessment & Plan (1) Chest pain: Code(s): R07.9 - Chest pain, unspecified Category: Medical Plan: Epigastric Chest pain/burning ? likely GERD/dyspepsia, improved. Slightly Elevated TSH with normal T4 ? possible subclinical hypothyroidism; Will repeat Lab work in 4 weeks (~ Mar 2025). Orders Placed. Continue Omeprazole daily; reinforce consistent dosing 30?60 min before meals. Episode of dizziness ? resolved; etiology unclear, possibly related to dehydration, positional change. Dietary counseling for GERD: avoid spicy/fatty foods, caffeine, citrus, late-night meals. Encourage small, frequent meals and avoidance of lying down after eating. Orders: Orders TSH reflex Free T4 03/23/25 R79.89 - Other specified abnormal findings of blood chemistry
== END 2025-02-16 10:28 | disposition home or self-care (01) ==
LOC: HO.HMCH 09:40
PROVIDERS: PCP Internal Medicine; Visit Provider Nurse Practitioner Family
DX: R07.9 Chest pain, unspecified (principal)